=== PATIENT | female | born 1970 | race Caucasian/White ===

== ENCOUNTER → 2018-07-29 14:43 | Outpatient (CLI) | payer OTHER, MEDICAID, SELFPAY ==
--- NOTE | 2018-07-29 | DI.RAD.S_ITS ---
PROCEDURE: XR HIP W PEL IF DONE LT 2V INDICATIONS: LEFT HIP CHRONIC PAIN, LOW BACK TECHNIQUE: 2 views of the hip were acquired. COMPARISON: None. FINDINGS: Bones: No fractures or dislocations. No suspicious bony lesions. The visualized pelvic ring appears intact. No hip joint space narrowing. Soft tissues: No suspicious soft tissue calcifications or masses. IMPRESSION: Negative left hip. If the patient's pain or other symptoms persist, consider further evaluation with MRI Dictated by: Robi Ellington M.D. on 07/29/2018 at 16:40 Approved by: Robi Ellington M.D. on 07/29/2018 at 16:41
--- NOTE | 2018-07-29 | DI.RAD.S_ITS ---
PROCEDURE: XR LUMBAR SPINE 2-3V INDICATIONS: LEFT HIP CHRONIC PAIN, LOW BACK TECHNIQUE: 3 views of the lumbar spine were acquired. COMPARISON: None. FINDINGS: Bones: Trace retrolisthesis of L3 on L4. Diffuse facet arthropathy. Endplate sclerosis and spurring. Moderate narrowing of the L5-S1 disc space. Evocurvature centered at L3. Soft tissues: Overlying bowel gas pattern is normal. No suspicious soft tissue calcifications. IMPRESSION: Moderate L5-S1 disc degeneration. Diffuse facet arthropathy. Trace retrolisthesis of L3 on L4. Levocurvature Dictated by: Robi Ellington M.D. on 07/29/2018 at 16:41 Approved by: Robi Ellington M.D. on 07/29/2018 at 16:42
== END ==
PROVIDERS: Visit Provider Nurse Practitioner Family
DX: M25.552 Pain in left hip (principal); M54.5 Low back pain; M51.37 Other intervertebral disc degeneration, lumbosacral region; M47.816 Spondylosis without myelopathy or radiculopathy, lumbar region; G89.29 Other chronic pain
CPT/HCPCS: 72100; 73502

== ENCOUNTER → 2018-10-21 07:48 | Outpatient (CLI) | payer OTHER, MEDICAID, SELFPAY ==
--- NOTE | 2018-10-21 | DI.US.S_ITS ---
PROCEDURE: US PERIPH VENOUS LOW EXTREM LT INDICATIONS: LEFT LEG PAIN TECHNIQUE: Real-time imaging, as well as color and pulse Doppler interrogation, were performed of the lower extremity deep veins from the inguinal ligament to the popliteal fossa. COMPARISON: None. FINDINGS: The common femoral, femoral and popliteal veins are normally compressible, and free of intraluminal thrombus. Color and pulse Doppler demonstrate normal phasic intraluminal flow. There is normal augmentation response to distal compression maneuver. IMPRESSION: No deep venous thrombosis identified within the left lower extremity. Dictated by: Christopher Mccoy [facility] Interpreted: Cheko Dominique MD on 10/21/2018 at 9:58 Approved by: Cheko Dominique M.D. on 10/21/2018 at 11:11
== END ==
PROVIDERS: Family Provider Nurse Practitioner Family; PCP Nurse Practitioner Family; Visit Provider Nurse Practitioner Family
DX: M79.605 Pain in left leg (principal)
CPT/HCPCS: 93971

== ENCOUNTER → 2018-11-10 16:11 | Outpatient (CLI) | payer OTHER, MEDICAID, SELFPAY ==
--- NOTE | 2018-11-10 | DI.MG.S_ITS ---
BILATERAL DIGITAL SCREENING MAMMOGRAM 3D/2D WITH CAD: 11/10/2018 CLINICAL: Routine screening. Comparison is made to exams dated: 04/04/2015 mammogram, 11/10/2016 mammogram, and 04/03/2014 mammogram - [facility]. The tissue of both breasts is heterogeneously dense. This may lower the sensitivity of mammography. Current study was also evaluated with a Computer Aided Detection (CAD) system. No significant masses, calcifications, or other findings are seen in either breast. There has been no significant interval change. IMPRESSION: NEGATIVE There is no mammographic evidence of malignancy. A 1 year screening mammogram is recommended. This exam was interpreted at Station ID: [id number]. NOTE: For mammograms, a report in lay terms will be sent to the patient. Approximately 15% of breast malignancies will not be visualized mammographically. In the management of a palpable breast mass, a negative mammogram must not discourage biopsy of a clinically suspicious lesion. Electronically Signed By: Dianne robin/emily:11/10/2018 17:07:10 letter sent: Normal Exam ACR BI-RADS Category 1: Negative 3341F
== END ==
PROVIDERS: Visit Provider Nurse Practitioner Family
DX: Z12.31 Encounter for screening mammogram for malignant neoplasm of breast (principal)
CPT/HCPCS: 77063; 77067

== ENCOUNTER 2021-02-16 11:37 | Emergency (ER) | payer OTHER, MEDICAID, SELFPAY ==
[2021-02-16 11:51] VITALS: BP 118/72; PULSE 71; RESP 18; TEMP 36.8; O2SAT 97; BMI 23.3
--- NOTE | 2021-02-16 12:19 | PC.NURSE ---
Pt states that a few days after returning from [place] she developed a pressure in between her eyes, hot flashes, and an increase in her anxiety.
[2021-02-16 12:34] LABS: Alanine Aminotransferase 25 IU/L (<35); Albumin 4.4 g/dL (3.5-5.0); Albumin Globulin Ratio 1.6 (1.0-2.8); Alkaline Phosphatase 54 U/L (38-126); Aspartate Aminotransferase 27 IU/L (14-36); BUN Creatinine Ratio 14.1 (6-22); Bilirubin Total 0.3 mg/dL (0.2-1.3); Blood Urea Nitrogen 9 mg/dL (7-17); Calcium 9.4 mg/dL (8.4-10.2); Carbon Dioxide 26 mmol/L (22-32); Chloride 107 mmol/L (98-107); Estimated Glomerular Filt Rate > 60.0 mL/min (>60); Globulin 2.8 g/dL (1.7-4.1); Glucose 107 mg/dL (70-100); HEMOLYSIS < 15 (0-50); Potassium 3.9 mmol/L (3.4-5.1); Sodium 140 mmol/L (137-145); Total Protein 7.2 g/dL (6.3-8.2)
[2021-02-16 12:39] LABS: Add Manual Diff / Slide Review NO; Basophils Absolute Auto 0 /uL (0-100); Basophils Percent Auto 0.5 % (0-2); Eosinophils Absolute Auto 200 /uL (0-450); Eosinophils Percent Auto 3.3 % (2-4); Hematocrit 40.6 % (36-46); Hemoglobin 13.7 g/dL (12.0-16.0); Lymphocytes Absolute Auto 1300 /uL (1100-4500); Lymphocytes Percent Auto 21.5 % (25-40); Mean Corpuscular HGB Conc 33.8 % (30-36); Mean Corpuscular Hemoglobin 31.2 PG (26-34); Mean Corpuscular Volume 92.1 fL (80-100); Monocytes Absolute Auto 400 /uL (0-900); Monocytes Percent Auto 6.3 % (3-14); Neutrophils Absolute Auto 4300 /uL (1500-7000); Neutrophils Percent Auto 68.4 % (50-75); Platelet Count 223 X10^3/uL (150-400); Red Cell Distribution Width 13.4 % (11.6-14.8); White Blood Cell Count 6.3 X10^3/uL (4.5-11.0)
[2021-02-16 12:46] LABS: COVID19 -Nasal RAPID Negative (Negative)
--- NOTE | 2021-02-16 12:57 | ED.HA ---
HPI - Headache General Chief Complaint: Headache Stated Complaint: HEADACHE/SHAKES Time Seen by Provider: 02/16/21 12:45 Mode of arrival: Ambulatory Limitations: no limitations History of Present Illness HPI Narrative: Patient is a 42-year-old female history of anxiety presenting today with headache ongoing for 1 week. She states that she typically does not get headaches at all she has had 1 migraine in her entire life. She traveled to [facility] a couple weeks ago she has had pain since then. She also is getting more and more anxious about the pain. She has a prescription for Xanax which she takes for anxiety. She started having severe anxiety attacks where she feels like her right arm is weak and travels up and gives her chest pain and palpitations. She has to lay down in a quiet room and take Xanax which does help. Pain in her head is right between her eyes. She denies any other facial pressure or congestion. She has not had any fever. She denies any shortness of breath no cough. She denies any neck pain seems to be moving her neck easily while talking. She has not had any rashes. Related Data Allergies Allergy/AdvReac Type Severity Reaction Status Date / Time bupropion [From Wellbutrin] Allergy Intermediate Hives Verified 02/16/21 11:51 Review of Systems Review of Systems Narrative: GENERAL: Denies chills, fatigue, malaise, fever, sweats, travel HEENT: Denies sinus pain, ear pain, sore throat, difficulty swallowing, neck pain RESPIRATORY: Denies dyspnea, cough, wheezing, hemoptysis, sputum. CARDIOVASCULAR: Denies chest pain, palpitations, orthopnea, edema GASTROINTESTINAL: Denies nausea, vomiting, abdominal pain, diarrhea, constipation, melena. : Denies dysuria, frequency, incontinence, hematuria, urinary retention, flank pain. MUSCULOSKELETAL: Denies weakness, joint pain, or bony pain SKIN: No rash, no erythema, no pruritus NEUROLOGIC: See HPI PSYCHIATRIC: Anxiety 12 point review of systems is negative except for those stated above and HPI Patient History Social History Smoking Status: Never smoker Smoking Status: Never smoker alcohol intake frequency: a few times a week Substance Use Type: does not use Exam Initial Vital Signs Initial Vital Signs: Vital Signs Temperature 98.3 F 02/16/21 11:51 Pulse Rate 71 02/16/21 11:51 Respiratory Rate 18 02/16/21 11:51 Blood Pressure 118/72 02/16/21 11:51 Pulse Oximetry 97 02/16/21 11:51 GENERAL: Well-appearing, well-nourished and in no acute distress. HEENT: Head atraumatic,EOMI, pupils reactive, face symmetric, moist mucous membranes NECK: Supple no meningeal signs CARDIOVASCULAR: Regular rate and rhythm without murmurs, rubs or gallops. RESPIRATORY: Breath sounds equal bilaterally, no wheezes rales or rhonchi. EXTREMITIES: Normal range of motion, no clubbing or edema. Neurovascularly intact NEUROLOGICAL: Alert and oriented x4.Normal gait and speech. Cranial nerves II through XII grossly intact. Good nxjthl-rx-fvrd, good xmwz-je-zmgt, strength equal bilaterally, no dysarthria or aphasia, sensation in tact to soft touch bilaterally, no visual changes, no facial droop SKIN: Warm, dry, no laceration, no petechiae, no rashes or lesions. Scores NIH Stroke Scale Level of Conciousness: Alert, keenly responsive Ask month/age: Answers both questions correctly. Open/close eyes, close hand: Performs both tasks correctly Best gaze horizontal: Normal Visual goel: No visual loss Facial palsy: Normal symetrical movement Left arm drift: No drift for full 10 sec Right arm drift: No drift for full 10 sec Left leg drift: No drift for full 5 sec Right leg drift: No drift for full 5 sec Limb ataxia: Absent Sensory on face/arms/legs: Normal, no sensory loss Best language: No aphasia, normal Dysarthria: Normal Extinction or inattention: No abnormality Total NIH Stroke scale score: 0 Course Orders Ordered: ED Orders 02/16/21 12:07 CMP [Comprehensive Metabolic Panel] Stat COVID19 -Nasal swab/Pre-Proc Stat Complete Blood Count AUTO DIFF Stat 02/16/21 12:57 CT head/brain wo con Stat Discontinued Medications Ketorolac Tromethamine (Ketorolac 30 Mg/Ml Vial) 15 mg IV NOW ONE Stop: 02/16/21 12:58 Last Admin: 02/16/21 13:06 Dose: 15 mg Documented by: BALTA Vital Signs Vital signs: Vital Signs - 8 hr 02/16/21 11:51 02/16/21 15:11 Temperature 98.3 F Pulse Rate 71 64 Respiratory Rate 18 18 Blood Pressure 118/72 116/69 Pulse Oximetry 97 98 MDM - Headache Lab Data Result diagrams: 02/16/21 12:07 02/16/21 12:07 Labs: Lab Results 02/16/21 02/16/21 02/16/21 Range/Units 12:07 12:07 12:07 WBC 6.3 (4.5-11.0) X10^3/uL RBC 4.40 (4.0-5.2) X10^6/uL Hgb 13.7 (12.0-16.0) g/dL Hct 40.6 (36-46) % MCV 92.1 (80-100) fL MCH 31.2 (26-34) PG MCHC 33.8 (30-36) % RDW 13.4 (11.6-14.8) % Plt Count 223 (150-400) X10^3/uL Neut % (Auto) 68.4 (50-75) % Lymph % (Auto) 21.5 L (25-40) % Wood % (Auto) 6.3 (3-14) % Eos % (Auto) 3.3 (2-4) % Baso % (Auto) 0.5 (0-2) % Neut # (Auto) 4300 (4386-7925) /uL Lymph # (Auto) 1300 (0676-4511) /uL Wood # (Auto) 400 (0-900) /uL Eos # (Auto) 200 (0-450) /uL Baso # (Auto) 0 (0-100) /uL Sodium 140 (137-145) mmol/L Potassium 3.9 (3.4-5.1) mmol/L Chloride 107 (98-107) mmol/L Carbon Dioxide 26 (22-32) mmol/L BUN 9 (7-17) mg/dL Creatinine 0.64 (0.52-1.04) mg/dL Estimated GFR > 60.0 (>60) mL/min BUN/Creatinine Ratio 14.1 (6-22) Glucose 107 H (70-100) mg/dL Calcium 9.4 (8.4-10.2) mg/dL Total Bilirubin 0.3 (0.2-1.3) mg/dL AST 27 (14-36) IU/L ALT 25 (<35) IU/L Alkaline Phosphatase 54 (38-126) U/L Total Protein 7.2 (6.3-8.2) g/dL Albumin 4.4 (3.5-5.0) g/dL Globulin 2.8 (1.7-4.1) g/dL Albumin/Globulin Ratio 1.6 (1.0-2.8) SARS-CoV-2 (PCR) Negative (Negative) Point of Care Testing Test Results Negative Urine Dip Bedside Urine Glucose Negative Bedside Urine Bilirubin - Negative Bedside Urine Ketone - Negative Urine Specific [place] 1.010 Bedside Urine Occult Blood - Negative Bedside Urine pH 7.0 Bedside Urine Protein - Negative Bedside Urine Urobilinogen - Negative Bedside Urine Nitrite - Negative Bedside Urine Leukocytes - Negative Esterase Imaging Data CT scan - head: Radiologist's Impression: PROCEDURE: CT HEAD/BRAIN WO CON INDICATIONS: abnormal headache for 1 week TECHNIQUE: Noncontrast 4.5 mm thick angled axial sections acquired from the foramen magnum to the vertex, with coronal and sagittal reformats. For radiation dose reduction, the following was used: automated exposure control, adjustment of mA and/or kV according to patient size. COMPARISON: None. FINDINGS: Image quality: Excellent. CSF spaces: Basal cisterns are patent. No extra-axial fluid collections. Ventricles are normal in size and shape. Brain: No midline shift. No intracranial masses or hemorrhage. Rock-white matter interface is normal. Skull and face: Calvarium and visualized facial bones are intact, without suspicious lesions. Sinuses: Visualized sinuses and mastoids are clear. IMPRESSION: Unremarkable intracranial study, without an imaging explanation found for the patient's presenting history of headache. Dictated by: Abner Ortega M.D. on 02/16/2021 at 12:52 Approved by: Abner Ortega M.D. on 02/16/2021 at 12:53 [facility] Narrative Medical decision making narrative: The patient is complaining of headache right between her eyes. She has no other facial congestion or facial pressure to suggest a sinusitis. Physical focal deficits. Other symptoms of arm is pain and weakness suggest anxiety. She does have a history of significant anxiety. Discharge Plan Departure Patient Disposition: Home Clinical Impression: Headache Instructions: DI for Headache Activity Restrictions/Additional Instructions: *You have been diagnosed with headache *What to do: At this time blood work and CT scan are overall reassuring. *Continue to take medications as directed Tylenol 1000 mg every 6 hours if needed for kaxt-gj-vqbmllqw pain Motrin 800 mg every 8 hours if needed for ctyt-li-jdxkyiaa pain *Follow up with your primary care provider in 2-3 days *Return to ER if you should have increasing pain, persistent vomiting, weakness numbness or tingling or any new, worsening or concerning symptoms Referrals: Miscellaneous,Doctor, [Primary Care Provider] -
[2021-02-16] MEDS: KETOROLAC 30 MG/ML VIAL 15 MG IV (13:06)
[2021-02-16 15:11] VITALS: BP 116/69; PULSE 64; RESP 18; O2SAT 98
== END 2021-02-16 15:12 | disposition home or self-care (01) ==
PROVIDERS: Emergency Provider Emergency Medicine
DX: R51.9 Headache, unspecified (principal); Z20.822 Contact with and (suspected) exposure to COVID-19
CPT/HCPCS: 36415; 70450; 80053; 81003; 81025; 85025; 87635; 96374; 99284; C9803; J1885

== ENCOUNTER 2025-06-21 13:45 | Outpatient (RCR) | payer OTHER, MEDICAID, SELFPAY ==
--- NOTE | 2025-01-11 15:53 | PT-OP ANOTE ---
Doctor's office called for clarification on protocol and office states that doctor follows any standard rotator cuff protocol. He does not have one of his own and is okay with PT getting a different protocol offline to follow.
--- NOTE | 2025-01-11 16:09 | PT.OIE ---
Addendum entered and electronically signed by Chikis Vu, PT 01/11/25 16:15: PT direct supervision and direction to student PT Lois Melo Original Note: Current Diagnoses Complete rotator cuff tear or rupture of right shoulder, not specified as traumatic (01/11/25) Visit Care Team Role Provider Type Doctor MD Tori Primary Care Provider Non-Staff Specialty: Medical Address: Phone: Fax: Email: Taurus Muir DO Attending Provider Non-Staff Family Provider Referring Provider Specialty: Orthopedics Address: [address] [place] [address] [address], [place], [address] opt2 Email: Physical Therapy Initial Evaluation PT-OP-A Visit Information Start: 01/09/25 13:27 Freq: Status: Active Protocol: Document 01/11/25 11:32 GG (Rec: 01/11/25 12:34 GG [id number]) Out-Patient Physical Therapy Visit Information Visit Information Visit Type Initial Evaluation Visit Start Time 11:34 Visit Stop Time 12:22 Visit Number 1 Number of CABLE SUPERVISOR Visits 0 Precautions Precautions 2 weeks s/p RC repair: PROM in all directions to tolerance (per protocol) PT-OP-B Current Condition Start: 01/09/25 13:27 Freq: Status: Active Protocol: Document 01/11/25 11:32 GG (Rec: 01/11/25 12:34 GG [id number]) Current Condition History of Current Condition Onset Date 12/28/24 Current Complaints 2 weeks s/p R supraspinatus repair History of Current Pt presents in simple sling on R arm. RC repair Condition following full supraspinatus tear on R shoulder. R hand -dominant. 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 Was initially told it was biceps tendinitis and was given some exercises to try, after no change she went back in and they found tear. No issues during surgery, and has weaned off opiate medications and only taking OTC NSAIDS. Notes more difficulty w/ sleeping d/t pain. Sleeps in recliner. Has a good support system to bring her to/from appts. 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 Likes drawing. Can currently do light vacuuming and can walk small dog w/ her L hand. Has been moving around her wrist and squeezing a ball. Had to stop doing yoga since injury. Notes some R neck stiffness since surgery, which she thinks is due sleeping in recliner. Going to [facility] 01/21 to stay w/ a friend and is scheduled to go to PT over there as well. Had surgery f/u yesterday and got stitches removed. Treatment Goals Patient/Caregiver driving, drawing, cleaning, yoga, strengthening, Goals showering/putting hair up and other self-hygiene, donning/doffing bra PT-OP-C Subjective Start: 01/09/25 13:27 Freq: Status: Active Protocol: Document 01/11/25 11:32 GG (Rec: 01/11/25 13:17 GG [id number]) Patient Questionnaires Quick Dash- Upper Extremity Quick Dash UE Score 70% Quick Dash UE 60 to 79% Impaired (Score 60-79) Impairment PT-OP-J Posture/Palpation/Skin Start: 01/09/25 13:27 Freq: Status: Active Protocol: Document 01/11/25 11:32 GG (Rec: 01/11/25 13:40 GG [id number]) Skin Assessment Incisional Assessment Incision Appearance/ four small incision about 1-2cm in length from Comments laparoscope around R shoulder; sutures removed, but still has mechanical closure. no excessive inflammation or swelling present. PT-OP-K Range of Motion Start: 01/09/25 13:27 Freq: Status: Active Protocol: Document 01/11/25 11:32 GG (Rec: 01/11/25 12:34 GG [id number]) Shoulder Goniometric Range of Motion Shoulder Right Passive Testing Position Supine Flexion 41 Abduction 50 External Rotation at 30 45 degrees Abduction Comments ER and ABD done in scaption PT-OP-Q Treatments Start: 01/09/25 13:27 Freq: Status: Active Protocol: Document 01/11/25 11:32 GG (Rec: 01/11/25 12:34 GG [id number]) Therapeutic Exercises Sitting Exercises stretches Sitting Exercise UT and LS Name Side bilateral Reps/Minutes 30s ea wrist Sitting Exercise AROM flex/ext Name Reps/Minutes 10x elbow flexion Sitting Exercise AROM flex/ext Name Reps/Minutes 10x Comments ed to stay in pain-free range; support elbow w/ L hand Other Exercises fwd lean Other Exercise Name let arm hang Reps/Minutes 30 s Therapeutic Activity Therapeutic Activity shoulder positioning Comments using fwd lean to wash armpits and shave, don/doff shirts and bras, sling repositioning for better alignment, propping shoulder while in recliner or laying down with pillows PT-OP-T Assessment and Plan Start: 01/09/25 13:27 Freq: Status: Active Protocol: Document 01/11/25 11:32 GG (Rec: 01/11/25 12:34 GG [id number]) Physical Therapy Assessment Rehab Potential Rehabilitation Good Potential Evaluation Complexity Number of Personal 3 or More Factors/ Comorbidities Number of Body 1-2 Systems Impaired Clinical Evolving Presentation at Evaluation Impairments Impairments Activity Tolerance,Functional Activities,Functional Mobility,Pain,Posture,ROM,Soft Tissue Mobility,Strength Goals ROM Short Term Goal (STG Pt will be able get at least 120 deg active shoulder ) flexion and 60 deg active ER of the R shoulder for better ability to complete self-hygiene. STG Duration 02/24/25 Fdc Goal (LTG) Pt will have shoulder ROM equal to or greater than L shoulder for better function during work and yoga. LTG Duration 04/05/25 work Business Services Coordinator Goal (LTG) Pt will be able to resume light work activities w/o pain exceeding 3/10 to show improved function and ability to meet job requirements. LTG Duration 04/05/25 quickDASH Impairment 70% Short Term Goal (STG Pt will score at least a 40% on quickDASH to show ) improving functional ability w/o being limited by pain. STG Duration 02/24/25 Business Services Coordinator Goal (LTG) Pt will score at least a 10% or less on quickDASH to show improved functional ability w/o being limited by pain. LTG Duration 04/05/25 Assessment Summary Assessment Adela presents to PT 2 weeks s/p R supraspinatus repair w / reduced ROM and pain associated w/ surgery. Pt will cont to benefit from skilled PT to regain ROM, build strength, and reduce pain for better ability to work and participate in hobbies and other activities. Physical Therapy Plan Frequency and Duration Frequency of 2x/Week Treatment Duration of 12 treatment (weeks) Plan of Care Start 01/11/25 Date Plan of Care End 04/05/25 Date Therapeutic Interventions Therapeutic Home Exercise Program,Joint Mobilizations,Manual Interventions Therapy,Neuromuscular Re-education,Patient/Caregiver Education,Self-Care/Home Management,Soft Tissue Mobilization,Taping,Therapeutic Activities,Therapeutic Exercises Modalities Cold Pack/Ice Massage,Electric Stimulation,Hot Packs, Infrared Therapy,Ultrasound Next Visit Focus/Plan Next Note Type Treatment Note Next Visit Plan check in how self-hygiene and sleep is going TE: cont w/ elbow and wrist exercises (AROM), putty/ line assembler strength, gentle pendulums MT: gentle PROM for shoulder flexion, PROM abduction/IR /ER (all in scap plane), AP mobs at , soft tissue work
--- NOTE | 2025-01-11 16:09 | PT.OPPOC ---
Addendum entered and electronically signed by Chikis Vu, PT 03/02/25 10:32: POC zeke Original Note: Physical, Occupational & Speech Therapy At [facility] Current Diagnoses Complete rotator cuff tear or rupture of right shoulder, not specified as traumatic (01/11/25) Visit Care Team Role Provider Type Doctor Tori, Primary Care Provider Non-Staff Specialty: Medical Address: Phone: Fax: Email: Taurus Muir DO Attending Provider Non-Staff Family Provider Referring Provider Specialty: Orthopedics Address: [address] [place] [address] [address], [place], [address] opt2 Email: Plan Of Care PT-OP-B Current Condition Start: 01/09/25 13:27 Freq: Status: Active Protocol: Document 01/11/25 11:32 GG (Rec: 01/11/25 12:34 GG [id number]) Current Condition History of Current Condition Onset Date 12/28/24 Current Complaints 2 weeks s/p R supraspinatus repair History of Current Pt presents in simple sling on R arm. RC repair Condition following full supraspinatus tear on R shoulder. R hand -dominant. 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 Was initially told it was biceps tendinitis and was given some exercises to try, after no change she went back in and they found tear. No issues during surgery, and has weaned off opiate medications and only taking OTC NSAIDS. Notes more difficulty w/ sleeping d/t pain. Sleeps in recliner. Has a good support system to bring her to/from appts. 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 Likes drawing. Can currently do light vacuuming and can walk small dog w/ her L hand. Has been moving around her wrist and squeezing a ball. Had to stop doing yoga since injury. Notes some R neck stiffness since surgery, which she thinks is due sleeping in recliner. Going [facility] 01/21 to stay w/ a friend and is scheduled to go to PT over there as well. Had surgery f/u yesterday and got stitches removed. Treatment Goals Patient/Caregiver driving, drawing, cleaning, yoga, strengthening, Goals showering/putting hair up and other self-hygiene, donning/doffing bra PT-OP-T Assessment and Plan Start: 01/09/25 13:27 Freq: Status: Active Protocol: Document 01/11/25 11:32 GG (Rec: 01/11/25 12:34 GG [id number]) Physical Therapy Assessment Rehab Potential Rehabilitation Good Potential Evaluation Complexity Number of Personal 3 or More Factors/ Comorbidities Number of Body 1-2 Systems Impaired Clinical Evolving Presentation at Evaluation Impairments Impairments Activity Tolerance,Functional Activities,Functional Mobility,Pain,Posture,ROM,Soft Tissue Mobility,Strength Goals ROM Short Term Goal (STG Pt will be able get at least 120 deg active shoulder ) flexion and 60 deg active ER of the R shoulder for better ability to complete self-hygiene. STG Duration 02/24/25 Retirement Goal (LTG) Pt will have shoulder ROM equal to or greater than L shoulder for better function during work and yoga. LTG Duration 04/05/25 work Retirement Goal (LTG) Pt will be able to resume light work activities w/o pain exceeding 3/10 to show improved function and ability to meet job requirements. LTG Duration 04/05/25 quickDASH Impairment 70% Short Term Goal (STG Pt will score at least a 40% on quickDASH to show ) improving functional ability w/o being limited by pain. STG Duration 02/24/25 Invasive Cardiovascular Technologist Goal (LTG) Pt will score at least a 10% or less on quickDASH to show improved functional ability w/o being limited by pain. LTG Duration 04/05/25 Assessment Summary Assessment Adela presents to PT 2 weeks s/p R supraspinatus repair w / reduced ROM and pain associated w/ surgery. Pt will cont to benefit from skilled PT to regain ROM, build strength, and reduce pain for better ability to work and participate in hobbies and other activities. Physical Therapy Plan Frequency and Duration Frequency of 2x/Week Treatment Duration of 12 treatment (weeks) Plan of Care Start 01/11/25 Plan of Care End 04/05/25 Date Therapeutic Interventions Therapeutic Home Exercise Program,Joint Mobilizations,Manual Interventions Therapy,Neuromuscular Re-education,Patient/Caregiver Education,Self-Care/Home Management,Soft Tissue Mobilization,Taping,Therapeutic Activities,Therapeutic Exercises Modalities Cold Pack/Ice Massage,Electric Stimulation,Hot Packs, Infrared Therapy,Ultrasound Next Visit Focus/Plan Next Note Type Treatment Note Next Visit Plan check in how self-hygiene and sleep is going TE: cont w/ elbow and wrist exercises (AROM), putty/ rug setter velvet strength, gentle pendulums MT: gentle PROM for shoulder flexion, PROM abduction/IR /ER (all in scap plane), AP mobs at , soft tissue work Plan of Care Dates Plan of Care Start Date 01/11/25 Plan of Care End Date 04/05/25 Electronically Signed by: Lois Melo 01/11/25 1532 If you are in agreement with this Plan of Care, please return a signed and dated copy. I have reviewed this Plan of Care and certify that the skilled therapy services above are required to meet the patient?s needs. Physician Signature Date Printed Name and Credentials Clinical Instructor Signature Printed Name and Credentials
--- NOTE | 2025-01-13 12:26 | PT.OTN ---
Current Diagnoses Complete rotator cuff tear or rupture of right shoulder, not specified as traumatic (01/13/25) Physical Therapy Treatment Note PT-OP-A Visit Information Start: 01/09/25 13:27 Freq: Status: Active Protocol: Document 01/13/25 11:31 AB (Rec: 01/13/25 12:26 AB Laptop) Out-Patient Physical Therapy Visit Information Visit Information Visit Start Time 11:37 Visit Stop Time 12:20 Visit Number 2 Number of REAL ESTATE PROFESSIONAL Visits 1 PT-OP-B Current Condition Start: 01/09/25 13:27 Freq: Status: Active Protocol: Document 01/11/25 11:32 GG (Rec: 01/11/25 12:34 GG [id number]) Current Condition History of Current Condition Onset Date 12/28/24 Current Complaints 2 weeks s/p R supraspinatus repair History of Current Pt presents in simple sling on R arm. RC repair Condition following full supraspinatus tear on R shoulder. R hand -dominant. 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 Was initially told it was biceps tendinitis and was given some exercises to try, after no change she went back in and they found tear. No issues during surgery, and has weaned off opiate medications and only taking OTC NSAIDS. Notes more difficulty w/ sleeping d/t pain. Sleeps in recliner. Has a good support system to bring her to/from appts. 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 Likes drawing. Can currently do light vacuuming and can walk small dog w/ her L hand. Has been moving around her wrist and squeezing a ball. Had to stop doing yoga since injury. Notes some R neck stiffness since surgery, which she thinks is due sleeping in recliner. Going to [facility] 01/21 to stay w/ a friend and is scheduled to go to PT over there as well. Had surgery f/u yesterday and got stitches removed. Treatment Goals Patient/Caregiver driving, drawing, cleaning, yoga, strengthening, Goals showering/putting hair up and other self-hygiene, donning/doffing bra PT-OP-C Subjective Start: 01/09/25 13:27 Freq: Status: Active Protocol: Document 01/13/25 11:31 AB (Rec: 01/13/25 12:26 AB Laptop) OP-PT Subjective Patient Comments Patient Comments Patient reports continued pain ant sub deltoid and post GH, comments it wakes her up. Patient reports using ice, Advil and Tylenol. Patient reports she is sleeping in a recliner until the . PT-OP-J Posture/Palpation/Skin Start: 01/09/25 13:27 Freq: Status: Active Protocol: Document 01/11/25 11:32 GG (Rec: 01/11/25 13:40 GG [id number]) Skin Assessment Incisional Assessment Incision Appearance/ four small incision about 1-2cm in length from Comments laparoscope around R shoulder; sutures removed, but still has mechanical closure. no excessive inflammation or swelling present. PT-OP-K Range of Motion Start: 01/09/25 13:27 Freq: Status: Active Protocol: Document 01/11/25 11:32 GG (Rec: 01/11/25 12:34 GG [id number]) Shoulder Goniometric Range of Motion Shoulder Right Passive Testing Position Supine Flexion 41 Abduction 50 External Rotation at 30 45 degrees Abduction Comments ER and ABD done in scaption PT-OP-Q Treatments Start: 01/09/25 13:27 Freq: Status: Active Protocol: Document 01/13/25 11:31 AB (Rec: 01/13/25 12:26 AB Laptop) Therapeutic Exercises Supine Exercises elbow flexion Supine Exercise Name UE supported on pillow Reps/Minutes X 10 Comments verbal cues Sitting Exercises wrist Sitting Exercise gripping blue foam Name Reps/Minutes X 10 elbow flexion Sitting Exercise AROM flex/ext Name Reps/Minutes 10x Comments ed to stay in pain-free range; support elbow w/ L hand Other Exercises fwd lean Other Exercise Name let arm hang HEP arm hang only, pendulum not to HEP Reps/Minutes 30 s also trial of pend fwd and side side, no to very minimal mvt, Manual Therapy Treatment Consent Patient gave verbal Yes consent for manual treatment Joint Mobilizations R shoulder Direction AP inf Grade II Body Position Hooklying Reps/Duration X 10 X 2 each Manual Techniques scapular isometrics Type into dep and add manual resistance Body Location right shoulder Reps/Duration X 10 each PROM Type R shoulder scap plane Comments ER lacking 9 from 0 deg start to 10 deg Ir 30 deg flexion 46 deg to 52 deg Self-Care/Home Management Treatment Education Other Education Patient ed, review no weight bearing, importance of no active movement, donning/doffing sling and during Arm hang PT-OP-T Assessment and Plan Start: 01/09/25 13:27 Freq: Status: Active Protocol: Document 01/13/25 11:31 AB (Rec: 01/13/25 12:26 AB Laptop) Physical Therapy Assessment Goals ROM Short Term Goal (STG Pt will be able get at least 120 deg active shoulder ) flexion and 60 deg active ER of the R shoulder for better ability to complete self-hygiene. STG Duration 02/24/25 Car Body Designer Goal (LTG) Pt will have shoulder ROM equal to or greater than L shoulder for better function during work and yoga. LTG Duration 04/05/25 work Car Body Designer Goal (LTG) Pt will be able to resume light work activities w/o pain exceeding 3/10 to show improved function and ability to meet job requirements. LTG Duration 04/05/25 quickDASH Impairment 70% Short Term Goal (STG Pt will score at least a 40% on quickDASH to show ) improving functional ability w/o being limited by pain. STG Duration 02/24/25 Car Body Designer Goal (LTG) Pt will score at least a 10% or less on quickDASH to show improved functional ability w/o being limited by pain. LTG Duration 04/05/25 Assessment Summary Assessment Increased PROM R shoulder ER and flexion, IR at 30 deg in scap plane on first measurement. Adela rates pain 0/10 end of session. Patient reports only doing arm hang during hygiene, patient ed to perform 3 X a day. Physical Therapy Plan Frequency and Duration Frequency of 2x/Week Treatment Duration of 12 treatment (weeks) Plan of Care Start 01/11/25 Date Plan of Care End 04/05/25 Date Next Visit Focus/Plan Next Note Type Treatment Note Next Visit Plan check in how self-hygiene and sleep is going TE: cont w/ elbow and wrist exercises (AROM), putty/ energy efficient site manager strength, gentle pendulums MT: gentle PROM for shoulder flexion, PROM abduction/IR /ER (all in scap plane), AP mobs at , soft tissue work
--- NOTE | 2025-01-17 15:51 | PT.OTN ---
Addendum entered and electronically signed by Chikis Vu, PT 01/17/25 16:33: PT direct supervision and direction to student PT Lois Melo throughout session Original Note: Current Diagnoses Complete rotator cuff tear or rupture of right shoulder, not specified as traumatic (01/17/25) Physical Therapy Treatment Note PT-OP-A Visit Information Start: 01/09/25 13:27 Freq: Status: Active Protocol: Document 01/17/25 11:32 GG (Rec: 01/17/25 12:24 GG [id number]) Out-Patient Physical Therapy Visit Information Visit Information Visit Type Treatment Note Visit Start Time 11:32 Visit Stop Time 12:15 Visit Number 3 Number of SPRING ASSEMBLER Visits 0 Precautions Precautions RC repair on 12/28/24 follow protocol PT-OP-B Current Condition Start: 01/09/25 13:27 Freq: Status: Active Protocol: Document 01/11/25 11:32 GG (Rec: 01/11/25 12:34 GG [id number]) Current Condition History of Current Condition Onset Date 12/28/24 Current Complaints 2 weeks s/p R supraspinatus repair History of Current Pt presents in simple sling on R arm. RC repair Condition following full supraspinatus tear on R shoulder. R hand -dominant. 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 Was initially told it was biceps tendinitis and was given some exercises to try, after no change she went back in and they found tear. No issues during surgery, and has weaned off opiate medications and only taking OTC NSAIDS. Notes more difficulty w/ sleeping d/t pain. Sleeps in recliner. Has a good support system to bring her to/from appts. 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 Likes drawing. Can currently do light vacuuming and can walk small dog w/ her L hand. Has been moving around her wrist and squeezing a ball. Had to stop doing yoga since injury. Notes some R neck stiffness since surgery, which she thinks is due sleeping in recliner. Going to [facility] 01/21 to stay w/ a friend and is scheduled to go to PT over there as well. Had surgery f/u yesterday and got stitches removed. Treatment Goals Patient/Caregiver driving, drawing, cleaning, yoga, strengthening, Goals showering/putting hair up and other self-hygiene, donning/doffing bra PT-OP-C Subjective Start: 01/09/25 13:27 Freq: Status: Active Protocol: Document 01/17/25 11:32 GG (Rec: 01/17/25 12:24 GG [id number]) OP-PT Subjective Patient Comments Patient Comments Pt reports that she has been doing HEP and all feel good, she is trying to work on extending her elbow too. States exercises feel easy. Going to see cryptozoologist tomorrow and massage therapist later this week. Reports that she is no longer taking any pain meds. PT-OP-J Posture/Palpation/Skin Start: 01/09/25 13:27 Freq: Status: Active Protocol: Document 01/11/25 11:32 GG (Rec: 01/11/25 13:40 GG [id number]) Skin Assessment Incisional Assessment Incision Appearance/ four small incision about 1-2cm in length from Comments laparoscope around R shoulder; sutures removed, but still has mechanical closure. no excessive inflammation or swelling present. PT-OP-K Range of Motion Start: 01/09/25 13:27 Freq: Status: Active Protocol: Document 01/17/25 11:32 GG (Rec: 01/17/25 12:24 GG [id number]) Shoulder Goniometric Range of Motion Shoulder Right Passive Flexion 65 Extension 28 Abduction 52 External Rotation at 30 45 degrees Abduction Internal Rotation 30 Comments ER/IR in scaption PT-OP-Q Treatments Start: 01/09/25 13:27 Freq: Status: Active Protocol: Document 01/17/25 11:32 GG (Rec: 01/17/25 12:24 GG [id number]) Therapeutic Exercises Sitting Exercises scapular Sitting Exercise 1. retraction 2. depression Name Side bilateral Reps/Minutes 10x Standing Exercises pendulum Standing Exercise fwd/bkwd, lat, CW/CWW Name Reps/Minutes 30 sec Manual Therapy Treatment Consent Patient gave verbal Yes consent for manual treatment Soft Tissue Mobilization pec Body Location R Mobilization Type Sustained Pressure Comments w/ passive abduction Joint Mobilizations R shoulder Direction AP, inf Grade II PT-OP-T Assessment and Plan Start: 01/09/25 13:27 Freq: Status: Active Protocol: Document 01/17/25 11:32 GG (Rec: 01/17/25 12:24 GG [id number]) Physical Therapy Assessment Goals ROM Short Term Goal (STG Pt will be able get at least 120 deg active shoulder ) flexion and 60 deg active ER of the R shoulder for better ability to complete self-hygiene. STG Duration 02/24/25 Head Operator Sulfide Goal (LTG) Pt will have shoulder ROM equal to or greater than L shoulder for better function during work and yoga. LTG Duration 04/05/25 work Head Operator Sulfide Goal (LTG) Pt will be able to resume light work activities w/o pain exceeding 3/10 to show improved function and ability to meet job requirements. LTG Duration 04/05/25 quickDASH Impairment 70% Short Term Goal (STG Pt will score at least a 40% on quickDASH to show ) improving functional ability w/o being limited by pain. STG Duration 02/24/25 Senior Care Goal (LTG) Pt will score at least a 10% or less on quickDASH to show improved functional ability w/o being limited by pain. LTG Duration 04/05/25 Assessment Summary Assessment Pt cont tolerate gentle PROM, mobilizations, and HEP. Cont improvements to PROM measurements since . Pt shows good carryover for exercises and precautions. Pt ed regarding sleeping position in bed. Physical Therapy Plan Frequency and Duration Frequency of 2x/Week Treatment Duration of 12 treatment (weeks) Plan of Care Start 01/11/25 Date Plan of Care End 04/05/25 Date Therapeutic Interventions Therapeutic Home Exercise Program,Joint Mobilizations,Manual Interventions Therapy,Neuromuscular Re-education,Patient/Caregiver Education,Self-Care/Home Management,Soft Tissue Mobilization,Taping,Therapeutic Activities,Therapeutic Exercises Modalities Cold Pack/Ice Massage,Electric Stimulation,Hot Packs, Infrared Therapy,Ultrasound Next Visit Focus/Plan Next Note Type Treatment Note Next Visit Plan check in how self-hygiene and sleep is going, HEP TE: cont w/ elbow and wrist exercises (AROM), scap isos MT: gentle PROM for shoulder flexion, PROM abduction/IR /ER (all in scap plane), AP mobs at , soft tissue work
--- NOTE | 2025-01-19 12:28 | PT.OTN ---
Current Diagnoses Complete rotator cuff tear or rupture of right shoulder, not specified as traumatic (01/19/25) Physical Therapy Treatment Note PT-OP-A Visit Information Start: 01/09/25 13:27 Freq: Status: Active Protocol: Document 01/19/25 11:31 AB (Rec: 01/19/25 12:28 AB Laptop) Out-Patient Physical Therapy Visit Information Visit Information Visit Type Treatment Note Visit Start Time 11:36 Visit Stop Time 12:16 Visit Number 4 Number of INDUSTRY CONSULTANT Visits 1 Precautions Precautions RC repair on 12/28/24 follow protocol PT-OP-B Current Condition Start: 01/09/25 13:27 Freq: Status: Active Protocol: Document 01/11/25 11:32 GG (Rec: 01/11/25 12:34 GG [id number]) Current Condition History of Current Condition Onset Date 12/28/24 Current Complaints 2 weeks s/p R supraspinatus repair History of Current Pt presents in simple sling on R arm. RC repair Condition following full supraspinatus tear on R shoulder. R hand -dominant. 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 Was initially told it was biceps tendinitis and was given some exercises to try, after no change she went back in and they found tear. No issues during surgery, and has weaned off opiate medications and only taking OTC NSAIDS. Notes more difficulty w/ sleeping d/t pain. Sleeps in recliner. Has a good support system to bring her to/from appts. 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 Likes drawing. Can currently do light vacuuming and can walk small dog w/ her L hand. Has been moving around her wrist and squeezing a ball. Had to stop doing yoga since injury. Notes some R neck stiffness since surgery, which she thinks is due sleeping in recliner. Going to [facility] 01/21 to stay w/ a friend and is scheduled to go to PT over there as well. Had surgery f/u yesterday and got stitches removed. Treatment Goals Patient/Caregiver driving, drawing, cleaning, yoga, strengthening, Goals showering/putting hair up and other self-hygiene, donning/doffing bra PT-OP-C Subjective Start: 01/09/25 13:27 Freq: Status: Active Protocol: Document 01/19/25 11:31 AB (Rec: 01/19/25 12:28 AB Laptop) OP-PT Subjective Patient Comments Patient Comments Patient reports she has been back to apartment, sleeping with UE flat. Patient reports she has been working on full elbow extension. Patient reports having no pain start of session. Reviewed precaution, no active movement. Patient is 3 weeks one day post op. PT-OP-J Posture/Palpation/Skin Start: 01/09/25 13:27 Freq: Status: Active Protocol: Document 01/11/25 11:32 GG (Rec: 01/11/25 13:40 GG [id number]) Skin Assessment Incisional Assessment Incision Appearance/ four small incision about 1-2cm in length from Comments laparoscope around R shoulder; sutures removed, but still has mechanical closure. no excessive inflammation or swelling present. PT-OP-K Range of Motion Start: 01/09/25 13:27 Freq: Status: Active Protocol: Document 01/17/25 11:32 GG (Rec: 01/17/25 12:24 GG [id number]) Shoulder Goniometric Range of Motion Shoulder Right Passive Flexion 65 Extension 28 Abduction 52 External Rotation at 30 45 degrees Abduction Internal Rotation 30 Comments ER/IR in scaption PT-OP-Q Treatments Start: 01/09/25 13:27 Freq: Status: Active Protocol: Document 01/19/25 11:31 AB (Rec: 01/19/25 12:28 AB Laptop) Therapeutic Exercises Sitting Exercises wrist Sitting Exercise gripping blue foam Name Reps/Minutes 30 sec elbow flexion Sitting Exercise AROM flex/ext Name Reps/Minutes 10x Comments ed to stay in pain-free range; support elbow w/ L hand Standing Exercises pendulum Standing Exercise fwd/bkwd, lat, CW/CWW Name Reps/Minutes 60 sec Other Exercises fwd lean Other Exercise Name let arm hang HEP arm hang only, Reps/Minutes X 30 sec Manual Therapy Treatment Consent Patient gave verbal Yes consent for manual treatment Soft Tissue Mobilization pec Body Location R Mobilization Type Sustained Pressure Comments w/ passive abduction Joint Mobilizations R shoulder Direction AP, inf Grade II Manual Techniques scapular isometrics Type into dep and add manual resistance Body Location right shoulder Reps/Duration X 10 each PROM Comments ER in scap plane 6 deg to 20 deg flexion 58 deg to 70 deg in scap plane PT-OP-T Assessment and Plan Start: 01/09/25 13:27 Freq: Status: Active Protocol: Document 01/19/25 11:31 AB (Rec: 01/19/25 12:28 AB Laptop) Physical Therapy Assessment Goals ROM Short Term Goal (STG Pt will be able get at least 120 deg active shoulder ) flexion and 60 deg active ER of the R shoulder for better ability to complete self-hygiene. STG Duration 02/24/25 Department Chairperson Goal (LTG) Pt will have shoulder ROM equal to or greater than L shoulder for better function during work and yoga. LTG Duration 04/05/25 work Department Chairperson Goal (LTG) Pt will be able to resume light work activities w/o pain exceeding 3/10 to show improved function and ability to meet job requirements. LTG Duration 04/05/25 quickDASH Impairment 70% Short Term Goal (STG Pt will score at least a 40% on quickDASH to show ) improving functional ability w/o being limited by pain. STG Duration 02/24/25 Department Chairperson Goal (LTG) Pt will score at least a 10% or less on quickDASH to show improved functional ability w/o being limited by pain. LTG Duration 04/05/25 Assessment Summary Assessment PROM R shoulder flex in scap plane to 70 deg. Patient reports feeling better sleeping in bed. Physical Therapy Plan Frequency and Duration Frequency of 2x/Week Treatment Duration of 12 treatment (weeks) Plan of Care Start 01/11/25 Date Plan of Care End 04/05/25 Date Next Visit Focus/Plan Next Visit Plan check in how self-hygiene and sleep is going, HEP TE: cont w/ elbow and wrist exercises (AROM), scap isos MT: gentle PROM for shoulder flexion, PROM abduction/IR /ER (all in scap plane), AP mobs at , soft tissue work
--- NOTE | 2025-02-14 16:33 | PT-OP ANOTE ---
per phone call w/ortho office: nurse said pt cleared for out of sling w/usual activities(eating, brushing teeth, can start AAROM, no lifting elbow above shoulder. Pt was informed by clinic but also called by PT to inform PT talked with clinic. Pt understands allowance.
--- NOTE | 2025-02-14 16:36 | PT.OTN ---
Current Diagnoses Complete rotator cuff tear or rupture of right shoulder, not specified as traumatic (02/14/25) Physical Therapy Treatment Note PT-OP-A Visit Information Start: 01/09/25 13:27 Freq: Status: Active Protocol: Document 02/14/25 15:24 [facility] (Rec: 02/14/25 16:36 [facility] [id number]) Out-Patient Physical Therapy Visit Information Visit Information Visit Type Progress Note Visit Start Time 15:20 Visit Stop Time 16:00 Visit Number 5 Number of LANGUAGE PATHOLOGIST Visits 0 Precautions Precautions per phone call w/office: nurse said pt cleared for out of sling w/usual activities(eating, brushing teeth, can start AAROM, no lifting elbow above shoulder PT-OP-B Current Condition Start: 01/09/25 13:27 Freq: Status: Active Protocol: Document 01/11/25 11:32 GG (Rec: 01/11/25 12:34 GG [id number]) Current Condition History of Current Condition Onset Date 12/28/24 Current Complaints 2 weeks s/p R supraspinatus repair History of Current Pt presents in simple sling on R arm. RC repair Condition following full supraspinatus tear on R shoulder. R hand -dominant. 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 Was initially told it was biceps tendinitis and was given some exercises to try, after no change she went back in and they found tear. No issues during surgery, and has weaned off opiate medications and only taking OTC NSAIDS. Notes more difficulty w/ sleeping d/t pain. Sleeps in recliner. Has a good support system to bring her to/from appts. 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 Likes drawing. Can currently do light vacuuming and can walk small dog w/ her L hand. Has been moving around her wrist and squeezing a ball. Had to stop doing yoga since injury. Notes some R neck stiffness since surgery, which she thinks is due sleeping in recliner. Going to [facility] 01/21 to stay w/ a friend and is scheduled to go to PT over there as well. Had surgery f/u yesterday and got stitches removed. Treatment Goals Patient/Caregiver driving, drawing, cleaning, yoga, strengthening, Goals showering/putting hair up and other self-hygiene, donning/doffing bra PT-OP-C Subjective Start: 01/09/25 13:27 Freq: Status: Active Protocol: Document 02/14/25 15:24 [facility] (Rec: 02/14/25 16:36 [facility] [id number]) OP-PT Subjective Patient Comments Patient Comments From other PT, doctor does not want pt out of sling until sees her surgeon thursday and does not want pt doing self PROM. Okay with tbar. Frustrated and worried that she is getting frozen shoulder. Feels like arm and lower arm is tight. PT-OP-J Posture/Palpation/Skin Start: 01/09/25 13:27 Freq: Status: Active Protocol: Document 01/11/25 11:32 GG (Rec: 01/11/25 13:40 GG [id number]) Skin Assessment Incisional Assessment Incision Appearance/ four small incision about 1-2cm in length from Comments laparoscope around R shoulder; sutures removed, but still has mechanical closure. no excessive inflammation or swelling present. PT-OP-K Range of Motion Start: 01/09/25 13:27 Freq: Status: Active Protocol: Document 02/14/25 15:24 [facility] (Rec: 02/14/25 16:36 [facility] [id number]) Shoulder Goniometric Range of Motion Shoulder Right Passive Flexion 115 Extension 47 Abduction 81 External Rotation at 28 45 degrees Abduction Internal Rotation 68 Comments ER/IR in scaption PT-OP-Q Treatments Start: 01/09/25 13:27 Freq: Status: Active Protocol: Document 02/14/25 15:24 [facility] (Rec: 02/14/25 16:36 [facility] [id number]) Manual Therapy Treatment Consent Patient gave verbal Yes consent for manual treatment Soft Tissue Mobilization cervical Body Location R parapsinals and scalenes Mobilization Type Rolling Intensity/Depth Moderate Body Position Sidelying pec Body Location R Mobilization Type Sustained Pressure Comments w/ passive flex Joint Mobilizations ribs Comments AP rib 1 and 2 w/cervical rot, caudal rib 2-3 s/l w/ breathing, caudal rib 1 w/SB thoracic Comments PA T1-3 c/r into trunk ext; T1-3 transverse L c/r trunk rot SC Comments R distraction and inf glide AC Comments ant clavicle s/l R shoulder Comments R gentle distraction Manual Techniques PROM Comments PROM PT-OP-T Assessment and Plan Start: 01/09/25 13:27 Freq: Status: Active Protocol: Document 02/14/25 15:24 [facility] (Rec: 02/14/25 16:36 [facility] [id number]) Physical Therapy Assessment Goals ROM Short Term Goal (STG Pt will be able get at least 120 deg active shoulder ) flexion and 60 deg active ER of the R shoulder for better ability to complete self-hygiene. 02/14-PROM improved, not cleared for AROM STG Duration 02/24/25 Horseradish Maker Goal (LTG) Pt will have shoulder ROM equal to or greater than L shoulder for better function during work and yoga. LTG Duration 04/05/25 work Mcfp Goal (LTG) Pt will be able to resume light work activities w/o pain exceeding 3/10 to show improved function and ability to meet job requirements. LTG Duration 04/05/25 quickDASH Impairment 70% Short Term Goal (STG Pt will score at least a 40% on quickDASH to show ) improving functional ability w/o being limited by pain. 02/14-n/t STG Duration 02/24/25 Horseradish Maker Goal (LTG) Pt will score at least a 10% or less on quickDASH to show improved functional ability w/o being limited by pain. LTG Duration 04/05/25 Assessment Summary Assessment pt had improved PROm flex to 131 deg after manual and improved ER in scap plane to 50 deg and had less ant shear of humerus w/IR after manual along w/notable less tension and pain along w/improved cervical and trunk rotation R. She is limited by her progression d/t protocol but had some recent set back d/t tension likely from sling. She is now cleared per MD call for AAROM and to take off sling and pt will benefit from cont PT to progress mobility and dec pain. Physical Therapy Plan Frequency and Duration Frequency of 2x/Week Treatment Duration of 12 treatment (weeks) Plan of Care Start 01/11/25 Date Plan of Care End 04/05/25 Date Therapeutic Interventions Therapeutic Home Exercise Program,Joint Mobilizations,Manual Interventions Therapy,Neuromuscular Re-education,Patient/Caregiver Education,Self-Care/Home Management,Soft Tissue Mobilization,Taping,Therapeutic Activities,Therapeutic Exercises Modalities Cold Pack/Ice Massage,Electric Stimulation,Hot Packs, Infrared Therapy,Ultrasound Next Visit Focus/Plan Next Note Type Treatment Note Next Visit Plan AAROM training (musa mann, table slides), manual to ribcage and shoulder complex
--- NOTE | 2025-02-16 10:21 | PT.OTN ---
Current Diagnoses Complete rotator cuff tear or rupture of right shoulder, not specified as traumatic (02/16/25) Physical Therapy Treatment Note PT-OP-A Visit Information Start: 01/09/25 13:27 Freq: Status: Active Protocol: Document 02/16/25 07:30 LR (Rec: 02/16/25 10:21 [facility] [id number]) Out-Patient Physical Therapy Visit Information Visit Information Visit Type Treatment Note Visit Start Time 07:34 Visit Stop Time 08:14 Visit Number 6 Number of LAND SURVEY TECHNICIAN Visits 0 PT-OP-B Current Condition Start: 01/09/25 13:27 Freq: Status: Active Protocol: Document 01/11/25 11:32 GG (Rec: 01/11/25 12:34 GG [id number]) Current Condition History of Current Condition Onset Date 12/28/24 Current Complaints 2 weeks s/p R supraspinatus repair History of Current Pt presents in simple sling on R arm. RC repair Condition following full supraspinatus tear on R shoulder. R hand -dominant. 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 Was initially told it was biceps tendinitis and was given some exercises to try, after no change she went back in and they found tear. No issues during surgery, and has weaned off opiate medications and only taking OTC NSAIDS. Notes more difficulty w/ sleeping d/t pain. Sleeps in recliner. Has a good support system to bring her to/from appts. 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 Likes drawing. Can currently do light vacuuming and can walk small dog w/ her L hand. Has been moving around her wrist and squeezing a ball. Had to stop doing yoga since injury. Notes some R neck stiffness since surgery, which she thinks is due sleeping in recliner. Going to [facility] 01/21 to stay w/ a friend and is scheduled to go to PT over there as well. Had surgery f/u yesterday and got stitches removed. Treatment Goals Patient/Caregiver driving, drawing, cleaning, yoga, strengthening, Goals showering/putting hair up and other self-hygiene, donning/doffing bra PT-OP-C Subjective Start: 01/09/25 13:27 Freq: Status: Active Protocol: Document 02/16/25 07:30 [facility] (Rec: 02/16/25 10:21 [facility] [id number]) OP-PT Subjective Patient Comments Patient Comments Pt reports has taken sling off. Can't lift arm but is using it for coffee PT-OP-J Posture/Palpation/Skin Start: 01/09/25 13:27 Freq: Status: Active Protocol: Document 01/11/25 11:32 GG (Rec: 01/11/25 13:40 GG [id number]) Skin Assessment Incisional Assessment Incision Appearance/ four small incision about 1-2cm in length from Comments laparoscope around R shoulder; sutures removed, but still has mechanical closure. no excessive inflammation or swelling present. PT-OP-K Range of Motion Start: 01/09/25 13:27 Freq: Status: Active Protocol: Document 02/14/25 15:24 [facility] (Rec: 02/14/25 16:36 [facility] [id number]) Shoulder Goniometric Range of Motion Shoulder Right Passive Flexion 115 Extension 47 Abduction 81 External Rotation at 28 45 degrees Abduction Internal Rotation 68 Comments ER/IR in scaption PT-OP-Q Treatments Start: 01/09/25 13:27 Freq: Status: Active Protocol: Document 02/16/25 07:30 [facility] (Rec: 02/16/25 10:21 [facility] [id number]) Therapeutic Exercises Supine Exercises foam roll Supine Exercise Name 1. gentle HAbd (at about 45 deg) 2. opp UE assisted flex Side bilateral Reps/Minutes 1. 30 sec 2. 10 AAROM Supine Exercise Name 1. chest press to flex 2. ER elbow at side Side right Reps/Minutes 20 ea Sitting Exercises mackenzie Sitting Exercise 1. flex 2. scaption Name Side right Reps/Minutes 20 AAROM Sitting Exercise 1. table slide flex 2. table slide abd Name Side bilateral Reps/Minutes 15 ea Standing Exercises stretch Standing Exercise sink stretch flex Name Side bilateral Reps/Minutes 15 sec x6 ext Standing Exercise AAROM cane Name Side right Reps/Minutes 20 Other Exercises fwd lean Other Exercise Name counter Manual Therapy Treatment Consent Patient gave verbal Yes consent for manual treatment Soft Tissue Mobilization cupping Comments R pec, post delt, lats/teres w/flex PROM biceps Comments circumferential biceps and humerus w/rot pec Body Location R Mobilization Type Sustained Pressure Comments w/ passive flex Joint Mobilizations ribs Comments general downward glide of ribs 5-8 w/ shoulder shrug thoracic Comments transverse T 5-6 w/shoulder shrug c/r AC Comments ant clavicle w/flex c/r R shoulder Comments R distraction, lat gapping and post glide PT-OP-T Assessment and Plan Start: 01/09/25 13:27 Freq: Status: Active Protocol: Document 02/16/25 07:30 [facility] (Rec: 02/16/25 10:21 [facility] [id number]) Physical Therapy Assessment Goals ROM Short Term Goal (STG Pt will be able get at least 120 deg active shoulder ) flexion and 60 deg active ER of the R shoulder for better ability to complete self-hygiene. 02/14-PROM improved, not cleared for AROM STG Duration 02/24/25 Compound Machine Operator Goal (LTG) Pt will have shoulder ROM equal to or greater than L shoulder for better function during work and yoga. LTG Duration 04/05/25 work Compound Machine Operator Goal (LTG) Pt will be able to resume light work activities w/o pain exceeding 3/10 to show improved function and ability to meet job requirements. LTG Duration 04/05/25 quickDASH Impairment 70% Short Term Goal (STG Pt will score at least a 40% on quickDASH to show ) improving functional ability w/o being limited by pain. 02/14-n/t STG Duration 02/24/25 Compound Machine Operator Goal (LTG) Pt will score at least a 10% or less on quickDASH to show improved functional ability w/o being limited by pain. LTG Duration 04/05/25 Assessment Summary Assessment Pt did well with progression of AAROM and encouraged to participate in this multiple times a day to gradually improve this at home. She was educated to stay in comfortable range with exercises. Still has capsular stiffness into end range flex, abd, and rotations. Physical Therapy Plan Frequency and Duration Frequency of 2x/Week Treatment Duration of 12 treatment (weeks) Plan of Care Start 01/11/25 Date Plan of Care End 04/05/25 Date Next Visit Focus/Plan Next Note Type Treatment Note Next Visit Plan ask re: doctor appt, AAROM training (mackenzie, musa, table slides), manual to ribcage and shoulder complex
--- NOTE | 2025-02-21 16:20 | PT.OTN ---
Current Diagnoses Complete rotator cuff tear or rupture of right shoulder, not specified as traumatic (02/21/25) Physical Therapy Treatment Note PT-OP-A Visit Information Start: 01/09/25 13:27 Freq: Status: Active Protocol: Document 02/21/25 15:18 [facility] (Rec: 02/21/25 16:20 [facility] [id number]) Out-Patient Physical Therapy Visit Information Visit Information Visit Type Treatment Note Visit Start Time 15:19 Visit Stop Time 15:59 Visit Number 7 Number of SHIELD CLEANER Visits 0 PT-OP-B Current Condition Start: 01/09/25 13:27 Freq: Status: Active Protocol: Document 01/11/25 11:32 GG (Rec: 01/11/25 12:34 GG [id number]) Current Condition History of Current Condition Onset Date 12/28/24 Current Complaints 2 weeks s/p R supraspinatus repair History of Current Pt presents in simple sling on R arm. RC repair Condition following full supraspinatus tear on R shoulder. R hand -dominant. 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 Was initially told it was biceps tendinitis and was given some exercises to try, after no change she went back in and they found tear. No issues during surgery, and has weaned off opiate medications and only taking OTC NSAIDS. Notes more difficulty w/ sleeping d/t pain. Sleeps in recliner. Has a good support system to bring her to/from appts. 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 Likes drawing. Can currently do light vacuuming and can walk small dog w/ her L hand. Has been moving around her wrist and squeezing a ball. Had to stop doing yoga since injury. Notes some R neck stiffness since surgery, which she thinks is due sleeping in recliner. Going to [facility] 01/21 to stay w/ a friend and is scheduled to go to PT over there as well. Had surgery f/u yesterday and got stitches removed. Treatment Goals Patient/Caregiver driving, drawing, cleaning, yoga, strengthening, Goals showering/putting hair up and other self-hygiene, donning/doffing bra PT-OP-C Subjective Start: 01/09/25 13:27 Freq: Status: Active Protocol: Document 02/21/25 15:18 [facility] (Rec: 02/21/25 16:20 [facility] [id number]) OP-PT Subjective Patient Comments Patient Comments saw surgeon, who said she could move into some more resistance stuff. next appt is end of mar. PT-OP-J Posture/Palpation/Skin Start: 01/09/25 13:27 Freq: Status: Active Protocol: Document 01/11/25 11:32 GG (Rec: 01/11/25 13:40 GG [id number]) Skin Assessment Incisional Assessment Incision Appearance/ four small incision about 1-2cm in length from Comments laparoscope around R shoulder; sutures removed, but still has mechanical closure. no excessive inflammation or swelling present. PT-OP-K Range of Motion Start: 01/09/25 13:27 Freq: Status: Active Protocol: Document 02/14/25 15:24 [facility] (Rec: 02/14/25 16:36 [facility] [id number]) Shoulder Goniometric Range of Motion Shoulder Right Passive Flexion 115 Extension 47 Abduction 81 External Rotation at 28 45 degrees Abduction Internal Rotation 68 Comments ER/IR in scaption PT-OP-Q Treatments Start: 01/09/25 13:27 Freq: Status: Active Protocol: Document 02/21/25 15:18 [facility] (Rec: 02/21/25 16:20 [facility] [id number]) Therapeutic Exercises Supine Exercises AAROM Supine Exercise Name 1. chest press to flex 2. flex 3.ER elbow at side 3. scaption Side right Equipment Used dowel Reps/Minutes 8 ea elbow flexion Supine Exercise Name w/ER hands on head Reps/Minutes 30 secx2 Sitting Exercises mackenzie Sitting Exercise 1. flex 2. scaption Name Side right Reps/Minutes 10 ea AAROM Sitting Exercise 1. table slide flex 2. table slide abd Name Side bilateral Reps/Minutes 8 ea Comments cues set up Standing Exercises stretch Standing Exercise sink stretch flex Name Side bilateral Reps/Minutes 30 sec x2 ext Standing Exercise AAROM cane Name Side right Reps/Minutes 10 Manual Therapy Treatment Consent Patient gave verbal Yes consent for manual treatment Soft Tissue Mobilization cupping Comments R lats w/tomy pose biceps Comments circumferential biceps and humerus w/rot Joint Mobilizations ribs Comments caudal ribs 1-3 c/r thoracic Comments UPA R T2-5 prone AC Comments ant clavicle w/flex c/r and percussion R shoulder Comments R distraction, lat gapping and post glide PT-OP-T Assessment and Plan Start: 01/09/25 13:27 Freq: Status: Active Protocol: Document 02/21/25 15:18 [facility] (Rec: 02/21/25 16:20 [facility] [id number]) Physical Therapy Assessment Goals ROM Short Term Goal (STG Pt will be able get at least 120 deg active shoulder ) flexion and 60 deg active ER of the R shoulder for better ability to complete self-hygiene. 02/14-PROM improved, not cleared for AROM STG Duration 02/24/25 Broke Worker Goal (LTG) Pt will have shoulder ROM equal to or greater than L shoulder for better function during work and yoga. LTG Duration 04/05/25 work Broke Worker Goal (LTG) Pt will be able to resume light work activities w/o pain exceeding 3/10 to show improved function and ability to meet job requirements. LTG Duration 04/05/25 quickDASH Impairment 70% Short Term Goal (STG Pt will score at least a 40% on quickDASH to show ) improving functional ability w/o being limited by pain. 02/14-n/t STG Duration 02/24/25 Usp Goal (LTG) Pt will score at least a 10% or less on quickDASH to show improved functional ability w/o being limited by pain. LTG Duration 04/05/25 Assessment Summary Assessment Pt required cues to avoid shrugging during exercises. improving ROM w/manual and treatment Physical Therapy Plan Frequency and Duration Frequency of 2x/Week Treatment Duration of 12 treatment (weeks) Plan of Care Start 01/11/25 Date Plan of Care End 04/05/25 Date Therapeutic Interventions Therapeutic Home Exercise Program,Joint Mobilizations,Manual Interventions Therapy,Neuromuscular Re-education,Patient/Caregiver Education,Self-Care/Home Management,Soft Tissue Mobilization,Taping,Therapeutic Activities,Therapeutic Exercises Modalities Cold Pack/Ice Massage,Electric Stimulation,Hot Packs, Infrared Therapy,Ultrasound Next Visit Focus/Plan Next Note Type Treatment Note Next Visit Plan ask re: doctor appt, AAROM training (mackenzie, bar, table slides), manual to ribcage and shoulder complex
--- NOTE | 2025-02-23 19:04 | PT.OTN ---
Current Diagnoses Complete rotator cuff tear or rupture of right shoulder, not specified as traumatic (02/23/25) Physical Therapy Treatment Note PT-OP-A Visit Information Start: 01/09/25 13:27 Freq: Status: Active Protocol: Document 02/23/25 13:47 LR (Rec: 02/23/25 19:04 [facility] [id number]) Out-Patient Physical Therapy Visit Information Visit Information Visit Type Treatment Note Visit Start Time 15:20 Visit Stop Time 16:10 Visit Number 8 Number of SUPERVISOR SPINNING Visits 0 PT-OP-B Current Condition Start: 01/09/25 13:27 Freq: Status: Active Protocol: Document 01/11/25 11:32 GG (Rec: 01/11/25 12:34 GG [id number]) Current Condition History of Current Condition Onset Date 12/28/24 Current Complaints 2 weeks s/p R supraspinatus repair History of Current Pt presents in simple sling on R arm. RC repair Condition following full supraspinatus tear on R shoulder. R hand -dominant. 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 Was initially told it was biceps tendinitis and was given some exercises to try, after no change she went back in and they found tear. No issues during surgery, and has weaned off opiate medications and only taking OTC NSAIDS. Notes more difficulty w/ sleeping d/t pain. Sleeps in recliner. Has a good support system to bring her to/from appts. 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 Likes drawing. Can currently do light vacuuming and can walk small dog w/ her L hand. Has been moving around her wrist and squeezing a ball. Had to stop doing yoga since injury. Notes some R neck stiffness since surgery, which she thinks is due sleeping in recliner. Going to [facility] 01/21 to stay w/ a friend and is scheduled to go to PT over there as well. Had surgery f/u yesterday and got stitches removed. Treatment Goals Patient/Caregiver driving, drawing, cleaning, yoga, strengthening, Goals showering/putting hair up and other self-hygiene, donning/doffing bra PT-OP-C Subjective Start: 01/09/25 13:27 Freq: Status: Active Protocol: Document 02/23/25 13:47 [facility] (Rec: 02/23/25 19:04 [facility] [id number]) OP-PT Subjective Patient Comments Patient Comments pt reports she has been sore recently PT-OP-J Posture/Palpation/Skin Start: 01/09/25 13:27 Freq: Status: Active Protocol: Document 01/11/25 11:32 GG (Rec: 01/11/25 13:40 GG [id number]) Skin Assessment Incisional Assessment Incision Appearance/ four small incision about 1-2cm in length from Comments laparoscope around R shoulder; sutures removed, but still has mechanical closure. no excessive inflammation or swelling present. PT-OP-K Range of Motion Start: 01/09/25 13:27 Freq: Status: Active Protocol: Document 02/14/25 15:24 [facility] (Rec: 02/14/25 16:36 [facility] [id number]) Shoulder Goniometric Range of Motion Shoulder Right Passive Flexion 115 Extension 47 Abduction 81 External Rotation at 28 45 degrees Abduction Internal Rotation 68 Comments ER/IR in scaption PT-OP-Q Treatments Start: 01/09/25 13:27 Freq: Status: Active Protocol: Document 02/23/25 13:47 [facility] (Rec: 02/23/25 19:04 [facility] [id number]) Therapeutic Exercises Standing Exercises wall crawl Standing Exercise flex Name Side bilateral Reps/Minutes 10 ext Side bilateral Equipment Used L1 band Reps/Minutes 15 Comments cues scap Manual Therapy Treatment Consent Patient gave verbal Yes consent for manual treatment Soft Tissue Mobilization post Comments lats, teres, subscap w/rotation & abd biceps Comments circumferential biceps and humerus w/rot pec Body Location R Mobilization Type Sustained Pressure Comments w/ passive flex Joint Mobilizations AC Comments APclavicle w/flex c/r R shoulder Comments R distraction, lat gapping and post glide PT-OP-R Modalities Start: 01/09/25 13:27 Freq: Status: Active Protocol: Document 02/23/25 13:47 [facility] (Rec: 02/23/25 19:04 [facility] [id number]) Hot Pack/Cold Pack Treatment Cold Pack Location R shoulder Patient Position Supine PT-OP-T Assessment and Plan Start: 01/09/25 13:27 Freq: Status: Active Protocol: Document 02/23/25 13:47 [facility] (Rec: 02/23/25 19:04 [facility] [id number]) Physical Therapy Assessment Goals ROM Short Term Goal (STG Pt will be able get at least 120 deg active shoulder ) flexion and 60 deg active ER of the R shoulder for better ability to complete self-hygiene. 02/14-PROM improved, not cleared for AROM STG Duration 02/24/25 Correction Goal (LTG) Pt will have shoulder ROM equal to or greater than L shoulder for better function during work and yoga. LTG Duration 04/05/25 work Correction Goal (LTG) Pt will be able to resume light work activities w/o pain exceeding 3/10 to show improved function and ability to meet job requirements. LTG Duration 04/05/25 quickDASH Impairment 70% Short Term Goal (STG Pt will score at least a 40% on quickDASH to show ) improving functional ability w/o being limited by pain. 02/14-n/t STG Duration 02/24/25 Senior Contract Specialist Goal (LTG) Pt will score at least a 10% or less on quickDASH to show improved functional ability w/o being limited by pain. LTG Duration 04/05/25 Assessment Summary Assessment pt is improving w/ROM and had 130 at start of manual and 138 deg at the end of manual care. Physical Therapy Plan Frequency and Duration Frequency of 2x/Week Treatment Duration of 12 treatment (weeks) Plan of Care Start 01/11/25 Date Plan of Care End 04/05/25 Date Next Visit Focus/Plan Next Note Type Treatment Note Next Visit Plan AAROM training (mackenzie, musa, table slides), manual to ribcage and shoulder complex
--- NOTE | 2025-02-27 16:14 | PT.OTN ---
Current Diagnoses Complete rotator cuff tear or rupture of right shoulder, not specified as traumatic (02/27/25) Physical Therapy Treatment Note PT-OP-A Visit Information Start: 01/09/25 13:27 Freq: Status: Active Protocol: Document 02/27/25 15:17 LR (Rec: 02/27/25 16:14 [facility] [id number]) Out-Patient Physical Therapy Visit Information Visit Information Visit Type Treatment Note Visit Start Time 15:21 Visit Stop Time 16:00 Visit Number 9 Number of SAFEKEEPING CLERK Visits 0 PT-OP-B Current Condition Start: 01/09/25 13:27 Freq: Status: Active Protocol: Document 01/11/25 11:32 GG (Rec: 01/11/25 12:34 GG [id number]) Current Condition History of Current Condition Onset Date 12/28/24 Current Complaints 2 weeks s/p R supraspinatus repair History of Current Pt presents in simple sling on R arm. RC repair Condition following full supraspinatus tear on R shoulder. R hand -dominant. 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 Was initially told it was biceps tendinitis and was given some exercises to try, after no change she went back in and they found tear. No issues during surgery, and has weaned off opiate medications and only taking OTC NSAIDS. Notes more difficulty w/ sleeping d/t pain. Sleeps in recliner. Has a good support system to bring her to/from appts. 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 Likes drawing. Can currently do light vacuuming and can walk small dog w/ her L hand. Has been moving around her wrist and squeezing a ball. Had to stop doing yoga since injury. Notes some R neck stiffness since surgery, which she thinks is due sleeping in recliner. Going to [facility] 01/21 to stay w/ a friend and is scheduled to go to PT over there as well. Had surgery f/u yesterday and got stitches removed. 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 REally sore. PT-OP-J Posture/Palpation/Skin Start: 01/09/25 13:27 Freq: Status: Active Protocol: Document 01/11/25 11:32 GG (Rec: 01/11/25 13:40 GG [id number]) Skin Assessment Incisional Assessment Incision Appearance/ four small incision about 1-2cm in length from Comments laparoscope around R shoulder; sutures removed, but still has mechanical closure. no excessive inflammation or swelling present. PT-OP-K Range of Motion Start: 01/09/25 13:27 Freq: Status: Active Protocol: Document 02/14/25 15:24 [facility] (Rec: 02/14/25 16:36 [facility] [id number]) Shoulder Goniometric Range of Motion Shoulder Right Passive Flexion 115 Extension 47 Abduction 81 External Rotation at 28 45 degrees Abduction Internal Rotation 68 Comments ER/IR in scaption PT-OP-Q Treatments Start: 01/09/25 13:27 Freq: Status: Active Protocol: Document 02/27/25 15:17 [facility] (Rec: 02/27/25 16:14 [facility] [id number]) Therapeutic Exercises Sidelying Exercises ER Side right Equipment Used towel at side Reps/Minutes 15 abd Sidelying Exercise to 90 Name Side right Reps/Minutes 12 Standing Exercises IR/ER Standing Exercise comfortable range Name Side right Equipment Used L1 Reps/Minutes 10 ea Comments cues elbow at side ext Side bilateral Equipment Used L1 band Reps/Minutes 15 Comments cues scap Manual Therapy Treatment Consent Patient gave verbal Yes consent for manual treatment Soft Tissue Mobilization post Comments lats, teres, subscap w/rotation & abd biceps Comments circumferential biceps and humerus w/rot cervical Body Location R parapsinals and scalenes Mobilization Type Rolling Intensity/Depth Moderate Body Position Sidelying pec Body Location R Mobilization Type Sustained Pressure Comments w/ passive flex Joint Mobilizations ribs Comments AP rib 2 thoracic Comments transverse T 2 R SC Comments sup and inf w/scap motions R shoulder Comments R distraction, lat gapping and post glide Taping taping Comments deltoid Y tape, supraspinatus Y tape, I strip from ant to post PT-OP-R Modalities Start: 01/09/25 13:27 Freq: Status: Active Protocol: Document 02/23/25 13:47 [facility] (Rec: 02/23/25 19:04 [facility] [id number]) Hot Pack/Cold Pack Treatment Cold Pack Location R shoulder Patient Position Supine PT-OP-T Assessment and Plan Start: 01/09/25 13:27 Freq: Status: Active Protocol: Document 02/27/25 15:17 [facility] (Rec: 02/27/25 16:14 [facility] [id number]) Physical Therapy Assessment Goals ROM Short Term Goal (STG Pt will be able get at least 120 deg active shoulder ) flexion and 60 deg active ER of the R shoulder for better ability to complete self-hygiene. 02/14-PROM improved, not cleared for AROM STG Duration 02/24/25 Gang Rider Goal (LTG) Pt will have shoulder ROM equal to or greater than L shoulder for better function during work and yoga. LTG Duration 04/05/25 work Gang Rider Goal (LTG) Pt will be able to resume light work activities w/o pain exceeding 3/10 to show improved function and ability to meet job requirements. LTG Duration 04/05/25 quickDASH Impairment 70% Short Term Goal (STG Pt will score at least a 40% on quickDASH to show ) improving functional ability w/o being limited by pain. 02/14-n/t STG Duration 02/24/25 Mcc Goal (LTG) Pt will score at least a 10% or less on quickDASH to show improved functional ability w/o being limited by pain. LTG Duration 04/05/25 Assessment Summary Assessment Pt felt relief and had greater ease of going to hand on head position to reach for hair after session today. able to tolerate progression exercises Physical Therapy Plan Frequency and Duration Frequency of 2x/Week Treatment Duration of 12 treatment (weeks) Plan of Care Start 01/11/25 Date Plan of Care End 04/05/25 Date Next Visit Focus/Plan Next Note Type Treatment Note Next Visit Plan cont to advance ROM (AROM , AAROM), start gentle resitance
--- NOTE | 2025-03-01 09:51 | PT.OTN ---
Current Diagnoses Complete rotator cuff tear or rupture of right shoulder, not specified as traumatic (03/01/25) Physical Therapy Treatment Note PT OP: Cervical/Upper Extremity Start: 03/01/25 07:18 Freq: Status: Active Protocol: Document 03/01/25 07:19 AB (Rec: 03/01/25 08:23 AB [id number]) Out-Patient Physical Therapy Visit Information Visit Information Visit Type Treatment Note Visit Note Access Code [email or web address] Visit Start Time 07:30 Visit Stop Time 08:17 Visit Number 10 Number of CHECKOUT SUPERVISOR Visits 1 Progress Note Due 03/16/25 OP-PT Subjective Patient Comments Patient Comments Patient reports she feels like a rib is out and the scapula is painful 7/10 pain and it feels like it is difficult to breath due to the pain. AROM 94 deg flexion AROM R shoulder start of session. Therapeutic Exercises Supine Exercises supine shoulder flexion Side bilateral Reps/Minutes X 6 Comments Verbal cues for 10 sec hold and finger resistance lowering UE Sidelying Exercises ER Side right Equipment Used towel at side Reps/Minutes 15 Comments VC for full ROM and to avoid wrist ext Sitting Exercises mackenzie Sitting Exercise 2. scaption Name Side right Reps/Minutes 2 min Comments Mirror in front, VC to avoid UT activation AAROM Sitting Exercise 1. table slide flex 2. table slide abd Name Side bilateral Reps/Minutes 8 ea Comments cues set up stretches Sitting Exercise UT and LS holding seat Name Side bilateral Reps/Minutes 60 sec x 2 R X 1 L with AROM CS rotation X 10 Comments verbal cues Standing Exercises wall crawl Standing Exercise flex Pt ed less reps more often during day Name Side bilateral Reps/Minutes 5 Comments using opp hand on shoulder tac cue to avoid Ut activation, Manual Therapy Treatment Consent Patient gave verbal Yes consent for manual treatment Soft Tissue Mobilization UT, levator scap Body Location R Mobilization Type Cross-Friction,Rolling,Sustained Pressure Intensity/Depth Moderate Body Position Sitting Comments to deep for levator scap pec Body Location R Mobilization Type Cross-Friction,Rolling Joint Mobilizations scapular mobilization R Direction dep and add Grade IV Body Position Sidelying Reps/Duration X 10 each R shoulder Joint GH Direction AP and inf Grade III Body Position Hooklying Reps/Duration 3X10 each Taping taping Comments over current tape with patient with instructions to remove in 2 days I strip to UT and I strip levator scap ins to orig one I strip ant GH to scap for posture Manual Techniques PROM Type contract relax into R shoulder ER X 2 Physical Therapy Assessment Goals ROM Short Term Goal (STG Pt will be able get at least 120 deg active shoulder ) flexion and 60 deg active ER of the R shoulder for better ability to complete self-hygiene. 02/14-PROM improved, not cleared for AROM STG Duration 02/24/25 Public Health Teacher Goal (LTG) Pt will have shoulder ROM equal to or greater than L shoulder for better function during work and yoga. LTG Duration 04/05/25 work Intermediate Goal (LTG) Pt will be able to resume light work activities w/o pain exceeding 3/10 to show improved function and ability to meet job requirements. LTG Duration 04/05/25 quickDASH Impairment 70% Short Term Goal (STG Pt will score at least a 40% on quickDASH to show ) improving functional ability w/o being limited by pain. 02/14-n/t STG Duration 02/24/25 Public Health Teacher Goal (LTG) Pt will score at least a 10% or less on quickDASH to show improved functional ability w/o being limited by pain. LTG Duration 04/05/25 Assessment Summary Assessment 107 deg AROM R shoulder flexion end of session. Physical Therapy Plan Frequency and Duration Frequency of 2x/Week Treatment Duration of 12 treatment (weeks) Plan of Care Start 01/11/25 Date Plan of Care End 04/05/25 Date Next Visit Focus/Plan Next Note Type Treatment Note Next Visit Plan cont to advance ROM (AROM , AAROM), start gentle resitance
--- NOTE | 2025-03-06 17:54 | PT.OTN ---
Current Diagnoses Complete rotator cuff tear or rupture of right shoulder, not specified as traumatic (03/06/25) Physical Therapy Treatment Note PT OP: Cervical/Upper Extremity Start: 03/01/25 07:18 Freq: Status: Active Protocol: Document 03/06/25 16:53 [facility] (Rec: 03/06/25 17:54 [facility] [id number]) Out-Patient Physical Therapy Visit Information Visit Information Visit Type Treatment Note Visit Note Access Code [email or web address] Visit Start Time 16:56 Visit Stop Time 17:38 Visit Number 11 Number of DISH UP PERSON Visits 0 Progress Note Due 03/16/25 OP-PT Subjective Patient Comments Patient Comments had to ease off for a couple days where she did things twice a day because pec felt tight and arm ached. She is going to acupuncture again this thursday. She feels like she can't feel the lifting of her shoulder. taking tylenol a couple times a day. When she wakes up it is sore. Therapeutic Exercises Supine Exercises supine shoulder flexion Side bilateral Reps/Minutes 10 sec x3 Sidelying Exercises abd Sidelying Exercise to 90 Name Side right Reps/Minutes 15 Sitting Exercises mackenzie Sitting Exercise 1. flex 2. abd 3. IR standing Name Side right Reps/Minutes 15 ea Comments cues for avoiding shrug stretches Sitting Exercise 1. UT 2. LS Name Side right Reps/Minutes 30 sec Standing Exercises biceps Side bilateral Equipment Used Lvl 1 band Reps/Minutes 15 IR/ER Standing Exercise comfortable range Name Side right Equipment Used L1 Reps/Minutes 10 ea Comments cues elbow at side wall crawl Standing Exercise abd Name Side right Reps/Minutes 5 stretch Standing Exercise 1. pec elbow straight 2. 90/90 Name Side right Reps/Minutes 1. 20 sec 2. 30 sec x2 ext Side bilateral Equipment Used L2 band Reps/Minutes 15 Comments cues scap Manual Therapy Treatment Consent Patient gave verbal Yes consent for manual treatment Soft Tissue Mobilization post Comments lats, teres, subscap w/flex pec Body Location R Mobilization Type Cross-Friction,Rolling Comments w/abd Joint Mobilizations R shoulder Comments post glide c/r w/HAbd, post translation c/r neutral, post glide w/IR c/r Physical Therapy Assessment Goals ROM Short Term Goal (STG Pt will be able get at least 120 deg active shoulder ) flexion and 60 deg active ER of the R shoulder for better ability to complete self-hygiene. 02/14-PROM improved, not cleared for AROM STG Duration 02/24/25 Latin American Studies Professor Goal (LTG) Pt will have shoulder ROM equal to or greater than L shoulder for better function during work and yoga. LTG Duration 04/05/25 work Latin American Studies Professor Goal (LTG) Pt will be able to resume light work activities w/o pain exceeding 3/10 to show improved function and ability to meet job requirements. LTG Duration 04/05/25 quickDASH Impairment 70% Short Term Goal (STG Pt will score at least a 40% on quickDASH to show ) improving functional ability w/o being limited by pain. 02/14-n/t STG Duration 02/24/25 Latin American Studies Professor Goal (LTG) Pt will score at least a 10% or less on quickDASH to show improved functional ability w/o being limited by pain. LTG Duration 04/05/25 Assessment Summary Assessment Pt cont to require cues w/scap movement. New long HEP given for all to focus on between AAROM, stretching and strength. She did well iwth exercises. continues to be limited especially w/overhead mobility with some PT concern for frozen shoulder. Physical Therapy Plan Frequency and Duration Frequency of 2x/Week Treatment Duration of 12 treatment (weeks) Plan of Care Start 01/11/25 Date Plan of Care End 04/05/25 Date Next Visit Focus/Plan Next Note Type Progress Note Next Visit Plan cont to advance ROM (AROM , AAROM), start gentle resitance
--- NOTE | 2025-03-09 18:17 | PT.OPPOC ---
Addendum entered and electronically signed by Chikis Vu, PT 03/09/25 18:21: POC sent Original Note: Physical, Occupational & Speech Therapy At [facility] Current Diagnoses Complete rotator cuff tear or rupture of right shoulder, not specified as traumatic (03/09/25) Visit Care Team Role Provider Type Doctor MD Tori Primary Care Provider Non-Staff Specialty: Medical Address: Phone: Fax: Email: Taurus Muir DO Attending Provider Non-Staff Family Provider Referring Provider Specialty: Orthopedics Address: [address] [place] [address] [address], [place], [address] opt2 Email: Plan Of Care PT OP: Cervical/Upper Extremity Start: 03/01/25 07:18 Freq: Status: Active Protocol: Document 03/09/25 16:24 [facility] (Rec: 03/09/25 17:03 [facility] [id number]) Out-Patient Physical Therapy Visit Information Visit Information Visit Type Progress Note Visit Start Time 16:20 Visit Stop Time 17:00 Visit Number 12 Number of BUYER LIAISON Visits 0 Progress Note Due 04/08/25 OP-PT Subjective Patient Comments Patient Comments Pt reports she feels much better today. feels like pec is looser Patient Questionnaires Quick Dash- Upper Extremity Quick Dash UE Score 25 Shoulder Goniometric Range of Motion Shoulder Measured in Degrees Right Active Flexion 107 Extension 69 Abduction 89 External Rotation at 60 0 degrees Abduction Internal Rotation T12 Behind Back (text) Right Passive Flexion 126 Abduction 98 External Rotation at 48 45 degrees Abduction Internal Rotation 72 Comments ER/IR in scaption Shoulder Strength Shoulder Manual Muscle Testing Right Flexion 3+ Fair+ Extension 4 Good Abduction (C5) 3+ Fair+ External Rotation 3+ Fair+ Internal Rotation 4 Good Left Flexion 5 Normal Extension 5 Normal Abduction (C5) 5 Normal External Rotation 4+ Good+ Internal Rotation 5 Normal Therapeutic Exercises Standing Exercises stretch Standing Exercise 1. corner 90/90 B 2. IR behind back w/towel R Name Reps/Minutes 30 sec ea Manual Therapy Treatment Consent Patient gave verbal Yes consent for manual treatment Soft Tissue Mobilization post Comments lats, teres, subscap w/flex cupping Comments post delt w/Hadd c/r pec Body Location R Mobilization Type Rolling,Sustained Pressure Comments w/abd Joint Mobilizations R shoulder Comments post glide c/r w/HAbd, post translation c/r neutral, inf glide c/r into abd, lat gapping c/r Physical Therapy Assessment Goals ROM Short Term Goal (STG Pt will be able get at least 120 deg active shoulder ) flexion and 60 deg active ER of the R shoulder for better ability to complete self-hygiene. 02/14-PROM improved, not cleared for AROM 03/09-ER achieved and was able to wash hair, aROM flex 107 STG Duration 02/24/25 Fdc Goal (LTG) Pt will have shoulder AROM equal to or greater than L shoulder for better function during work and yoga. 03/09-remains limited LTG Duration 06/05/25 work Fdc Goal (LTG) Pt will be able to resume light work activities w/o pain exceeding 3/10 to show improved function and ability to meet job requirements. 03/09- has been able to do light cleaning and dog walks without issue ADVANCE goal to: return to full cleaning and dog walking activities. LTG Duration 06/05/25 quickDASH Impairment 70% Short Term Goal (STG Pt will score at least a 40% on quickDASH to show ) improving functional ability w/o being limited by pain. 02/14-n/t STG Duration achieved to 25 Fdc Goal (LTG) Pt will score at least a 10% or less on quickDASH to show improved functional ability w/o being limited by pain. 03/09- LTG Duration 06/05/25 Assessment Summary Assessment Pt making good progress w/ROM but is very limited w/ flex and abd still w/very tight end feel with concern for adhesive capsulitis, but pt is making good progress w/rotational movements at this time. She would benefit from cont PT for further surgical recovery in order to return to her full job duties, recreational activities and greater ease w/ADLs. Physical Therapy Plan Frequency and Duration Frequency of 2x/Week Treatment Duration of 12 treatment (weeks) Plan of Care Start 03/09/25 Date Plan of Care End 06/07/25 Date Therapeutic Interventions Therapeutic Home Exercise Program,Joint Mobilizations,Manual Interventions Therapy,Neuromuscular Re-education,Patient/Caregiver Education,Self-Care/Home Management,Soft Tissue Mobilization,Taping,Therapeutic Activities,Therapeutic Exercises Modalities Cold Pack/Ice Massage,Electric Stimulation,Hot Packs, Infrared Therapy,Ultrasound Next Visit Focus/Plan Next Note Type Progress Note Next Visit Plan cont to advance ROM (AROM , AAROM), diane r?gela, manual to shoulder Plan of Care Dates Plan of Care Start Date 03/09/25 Plan of Care End Date 06/07/25 Electronically Signed by: Chikis Vu, PT 03/09/25 [id number] If you are in agreement with this Plan of Care, please return a signed and dated copy. I have reviewed this Plan of Care and certify that the skilled therapy services above are required to meet the patient?s needs. Physician Signature Date Printed Name and Credentials Clinical Instructor Signature Printed Name and Credentials
--- NOTE | 2025-03-13 17:58 | PT.OTN ---
Current Diagnoses Complete rotator cuff tear or rupture of right shoulder, not specified as traumatic (03/13/25) Physical Therapy Treatment Note PT OP: Cervical/Upper Extremity Start: 03/01/25 07:18 Freq: Status: Active Protocol: Document 03/13/25 17:02 [facility] (Rec: 03/13/25 17:58 [facility] [id number]) Out-Patient Physical Therapy Visit Information Visit Information Visit Type Treatment Note Visit Start Time 17:03 Visit Stop Time 17:43 Visit Number 13 Number of REMOVABLE PROSTHODONTIST Visits 0 Progress Note Due 04/08/25 OP-PT Subjective Patient Comments Patient Comments Pt reports shoulder doing ok. Stretch behind back still difficult Therapeutic Exercises Supine Exercises bridge Supine Exercise Name arm overhead arch & roll Side right Reps/Minutes 10 Prone Exercises scaption Prone Exercise Name comfortable range Side bilateral Equipment Used over ball Reps/Minutes 12 Comments cues neutral spine Habd Side bilateral Equipment Used over ball Reps/Minutes 12 Comments cues spine alignment and scap reatract Sidelying Exercises open book Side right Reps/Minutes 10 abd Sidelying Exercise rhythmic stabilization at 90 deg abd Name Side right Reps/Minutes 1 min ea Standing Exercises IR/ER Standing Exercise comfortable range Name Side right Equipment Used L2 Reps/Minutes 12 ea Comments cues elbow at side Manual Therapy Treatment Consent Patient gave verbal Yes consent for manual treatment Soft Tissue Mobilization post Comments lats, teres, subscap w/flex cupping Comments post delt, lat, teres, w/flex pec Body Location R Mobilization Type Rolling,Sustained Pressure Comments w/abd Joint Mobilizations cervical Comments transverse C5-6 L w/90 deg abd ER R R shoulder Comments post glide c/r; inf glide w/flex Physical Therapy Assessment Goals ROM Short Term Goal (STG Pt will be able get at least 120 deg active shoulder ) flexion and 60 deg active ER of the R shoulder for better ability to complete self-hygiene. 02/14-PROM improved, not cleared for AROM 03/09-ER achieved and was able to wash hair, aROM flex 107 STG Duration 02/24/25 Bevel Face Stoner And Polisher Goal (LTG) Pt will have shoulder AROM equal to or greater than L shoulder for better function during work and yoga. 03/09-remains limited LTG Duration 06/05/25 work Longterm Goal (LTG) Pt will be able to resume light work activities w/o pain exceeding 3/10 to show improved function and ability to meet job requirements. 03/09- has been able to do light cleaning and dog walks without issue ADVANCE goal to: return to full cleaning and dog walking activities. LTG Duration 06/05/25 quickDASH Impairment 70% Short Term Goal (STG Pt will score at least a 40% on quickDASH to show ) improving functional ability w/o being limited by pain. 02/14-n/t STG Duration achieved to 25 Bevel Face Stoner And Polisher Goal (LTG) Pt will score at least a 10% or less on quickDASH to show improved functional ability w/o being limited by pain. 03/09- LTG Duration 06/05/25 Assessment Summary Assessment Pt had PROM flex to 140 deg after manual today w/ less tightness at end range. required cues w/band exercises for set up and avoiding trunk motion Physical Therapy Plan Frequency and Duration Frequency of 2x/Week Treatment Duration of 12 treatment (weeks) Plan of Care Start 03/09/25 Date Plan of Care End 06/07/25 Date Next Visit Focus/Plan Next Note Type Treatment Note Next Visit Plan cont to advance ROM (AROM , AAROM), gentle r?sistance, manual to shoulder
--- NOTE | 2025-03-15 17:30 | PT.OTN ---
Current Diagnoses Complete rotator cuff tear or rupture of right shoulder, not specified as traumatic (03/15/25) Physical Therapy Treatment Note PT OP: Cervical/Upper Extremity Start: 03/01/25 07:18 Freq: Status: Active Protocol: Document 03/15/25 16:19 [facility] (Rec: 03/15/25 17:27 [facility] [id number]) Out-Patient Physical Therapy Visit Information Visit Information Visit Type Treatment Note Visit Start Time 16:20 Visit Stop Time 17:00 Visit Number 14 Number of PRODUCTION SUPPORT SPECIALIST Visits 0 Progress Note Due 04/08/25 OP-PT Subjective Patient Comments Patient Comments feels like raising overhead a little more Therapeutic Exercises Supine Exercises bridge Supine Exercise Name arm overhead arch & roll Side right Reps/Minutes 10sec x2 Comments cues for elbow push away Prone Exercises scaption Prone Exercise Name comfortable range Side bilateral Reps/Minutes 12 Comments cues neutral spine Habd Side bilateral Reps/Minutes 12 Comments cues spine alignment and scap reatract Sidelying Exercises stretch Sidelying Exercise sleeper Name Side right Reps/Minutes 20 sec x5 open book Side right Reps/Minutes 10 Comments cues for locking knee into place to set up Standing Exercises biceps Side bilateral Equipment Used Lvl 2 band Reps/Minutes 10 Comments cues neutral spine IR/ER Standing Exercise 1. ER w/back on wall 2. IR Name Side right Equipment Used 1. Lvl 12.L2 Reps/Minutes 12 ea Comments cues elbow at side Other Exercises fwd lean Other Exercise Name grab sink and lean back Side bilateral Reps/Minutes 30 sec Manual Therapy Treatment Consent Patient gave verbal Yes consent for manual treatment Soft Tissue Mobilization UT, levator scap Body Location R Mobilization Type Cross-Friction,Rolling,Sustained Pressure Intensity/Depth Moderate Body Position Sitting Comments to deep for levator scap post Comments lats, teres, subscap w/flex biceps Comments circumferential biceps and humerus w/rot pec Body Location R Mobilization Type Rolling,Sustained Pressure Comments w/abd Joint Mobilizations AC Comments APclavicle w/flex c/r R shoulder Comments post glide c/r; inf glide w/flex Physical Therapy Assessment Goals ROM Short Term Goal (STG Pt will be able get at least 120 deg active shoulder ) flexion and 60 deg active ER of the R shoulder for better ability to complete self-hygiene. 02/14-PROM improved, not cleared for AROM 03/09-ER achieved and was able to wash hair, aROM flex 107 STG Duration 02/24/25 Walking Dragline Operator Goal (LTG) Pt will have shoulder AROM equal to or greater than L shoulder for better function during work and yoga. 03/09-remains limited LTG Duration 06/05/25 work Walking Dragline Operator Goal (LTG) Pt will be able to resume light work activities w/o pain exceeding 3/10 to show improved function and ability to meet job requirements. 03/09- has been able to do light cleaning and dog walks without issue ADVANCE goal to: return to full cleaning and dog walking activities. LTG Duration 06/05/25 quickDASH Impairment 70% Short Term Goal (STG Pt will score at least a 40% on quickDASH to show ) improving functional ability w/o being limited by pain. 02/14-n/t STG Duration achieved to 25 Walking Dragline Operator Goal (LTG) Pt will score at least a 10% or less on quickDASH to show improved functional ability w/o being limited by pain. 03/09- LTG Duration 06/05/25 Assessment Summary Assessment Pt had 144 deg flex after manual today. Pt did well with exercises w/less cues today but still struggles to do ER w/o compensation but wall helped. Physical Therapy Plan Frequency and Duration Frequency of 2x/Week Treatment Duration of 12 treatment (weeks) Plan of Care Start 03/09/25 Date Plan of Care End 06/07/25 Date Next Visit Focus/Plan Next Note Type Treatment Note Next Visit Plan cont to advance ROM (AROM , AAROM), gentle r?sistance, manual to shoulder
--- NOTE | 2025-03-22 10:09 | PT-OP ANOTE ---
Pt called and asked for PT to call and PT called and verbally clarified exercises and encouraged to do tomy pose in addition to HEP
--- NOTE | 2025-04-07 09:19 | PT.OTN ---
Current Diagnoses Complete rotator cuff tear or rupture of right shoulder, not specified as traumatic (04/07/25) Physical Therapy Treatment Note PT OP: Cervical/Upper Extremity Start: 03/01/25 07:18 Freq: Status: Active Protocol: Document 04/07/25 07:24 [facility] (Rec: 04/07/25 08:18 [facility] [id number]) Out-Patient Physical Therapy Visit Information Visit Information Visit Type Treatment Note Visit Note Access Code [email or web address] Visit Start Time 07:30 Visit Stop Time 08:00 Visit Number 14 Number of CLOTH CUTTING INSPECTOR Visits 1 Progress Note Due 04/08/25 OP-PT Subjective Patient Comments Patient Comments Adela is 14 weeks 1 day post op rotator cuff repair R shoulder. 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 AROM R shoulder flexion 130 deg with increased trunk extension. [place] assisted R shoulder ER at 30 deg abd 51 deg Therapeutic Exercises Supine Exercises [place] assisted ER Supine Exercise Name at 30 deg abd Reps/Minutes 90 sec Comments tactile cues supine shoulder flexion Supine Exercise Name Reclined HEP Reps/Minutes X 10 Comments Verbal cues Sidelying Exercises ER Sidelying Exercise AROM ER and IR Name Side right Equipment Used towel at side For ER Reps/Minutes 15 Comments VC for full ROM and to avoid wrist ext abd Sidelying Exercise AROM HEP Name Side right Reps/Minutes X1- Comments vc for alignment Standing Exercises wall crawl Standing Exercise abd and flex Name Side right Reps/Minutes 5x each position Comments Vc to step back lift UE off wall at top and lower w/o wall Manual Therapy Treatment Soft Tissue Mobilization UT, levator scap Body Location R UT, levator scap, pec, post cuff, lat Mobilization Type Cross-Friction,Rolling,Sustained Pressure Intensity/Depth Moderate Body Position Sitting Comments and sidelying Joint Mobilizations scapular mobilization R Direction dep and add Grade IV Body Position Sidelying Reps/Duration X 10 each Physical Therapy Assessment Goals ROM Short Term Goal (STG Pt will be able get at least 120 deg active shoulder ) flexion and 60 deg active ER of the R shoulder for better ability to complete self-hygiene. 02/14-PROM improved, not cleared for AROM 03/09-ER achieved and was able to wash hair, aROM flex 107 STG Duration 02/24/25 Snf Goal (LTG) Pt will have shoulder AROM equal to or greater than L shoulder for better function during work and yoga. 03/09-remains limited LTG Duration 06/05/25 work Transaction Coordinator Goal (LTG) Pt will be able to resume light work activities w/o pain exceeding 3/10 to show improved function and ability to meet job requirements. 03/09- has been able to do light cleaning and dog walks without issue ADVANCE goal to: return to full cleaning and dog walking activities. LTG Duration 06/05/25 quickDASH Impairment 70% Short Term Goal (STG Pt will score at least a 40% on quickDASH to show ) improving functional ability w/o being limited by pain. 02/14-n/t STG Duration achieved to 25 Snf Goal (LTG) Pt will score at least a 10% or less on quickDASH to show improved functional ability w/o being limited by pain. 03/09- LTG Duration 06/05/25 Assessment Summary Assessment AROM R shoulder flexion 140 deg end of session. ER R shoulder continues to be limited. Physical Therapy Plan Frequency and Duration Frequency of 2x/Week Treatment Duration of 12 treatment (weeks) Plan of Care Start 03/09/25 Date Plan of Care End 06/07/25 Date Next Visit Focus/Plan Next Note Type Progress Note Next Visit Plan cont to advance ROM (AROM , AAROM), gentle r?sistance, manual to shoulder
--- NOTE | 2025-04-10 09:41 | PT.OPPN ---
Current Diagnoses Complete rotator cuff tear or rupture of right shoulder, not specified as traumatic (04/10/25) Physical Therapy Progress Note PT OP: Cervical/Upper Extremity Start: 03/01/25 07:18 Freq: Status: Active Protocol: Document 04/10/25 07:30 [facility] (Rec: 04/10/25 08:20 [facility] [id number]) Out-Patient Physical Therapy Visit Information Visit Information Visit Type Progress Note Visit Start Time 07:33 Visit Stop Time 08:15 Visit Number 15 Number of POLICE SURGEON Visits 0 Progress Note Due 05/10/25 OP-PT Subjective Patient Comments Patient Comments Pt reports she had a really good massage therapist in [place]. thinks has always has had dec R shoulder ROM. Has been having some twinges in neck. Has been doing exercises Shoulder Goniometric Range of Motion Shoulder Measured in Degrees Right Active Flexion 140 Extension 72 Abduction 142 External Rotation at 66 0 degrees Abduction Internal Rotation T8 Behind Back (text) Comments goes into scaption w/abd Right Passive Flexion 164 Abduction 132 External Rotation at 82 90 degrees Abduction External Rotation at 87 45 degrees Abduction Internal Rotation 72 Comments ER/IR in scaption Shoulder Strength Shoulder Manual Muscle Testing Right Flexion 4- Good- Extension 4 Good Abduction (C5) 3+ Fair+ External Rotation 4- Good- Internal Rotation 4 Good Left Flexion 5 Normal Extension 5 Normal Abduction (C5) 5 Normal External Rotation 4+ Good+ Internal Rotation 5 Normal Therapeutic Exercises Prone Exercises ER Prone Exercise Name 90/90 Side bilateral Equipment Used over ball Reps/Minutes 10 Comments cues scap squeeze and elbow position Ws Side bilateral Equipment Used over tball Reps/Minutes 10 Comments cues hand up w/elbow extension Side bilateral Resistance 3# Equipment Used over ball Reps/Minutes 10 Comments cues scap squeeze scaption Prone Exercise Name comfortable range Side bilateral Equipment Used 1# Reps/Minutes 10 Comments cues push for full range Habd Side bilateral Equipment Used 1# Reps/Minutes 10 Comments cues cervical alignment and scap reatract Standing Exercises serratus punch Standing Exercise wall Name Side bilateral Reps/Minutes 15 Comments max cues scap motion IR/ER Standing Exercise 1. ER B 2. IR Name Side right Equipment Used 1.L2 2. L3 Reps/Minutes 15 ea Comments cues elbow at side wall crawl Standing Exercise abd and flex Name Side right Reps/Minutes 5x each position Comments VC neutral spine then small lift off after 10 sec hold ea Manual Therapy Treatment Consent Patient gave verbal Yes consent for manual treatment Soft Tissue Mobilization pec Body Location R Mobilization Type Rolling,Sustained Pressure Comments w/abd Joint Mobilizations AC Comments AP clavicle w/abd c/r R shoulder Comments R inf c/r GH Physical Therapy Assessment Goals ROM Short Term Goal (STG Pt will be able get at least 120 deg active shoulder ) flexion and 60 deg active ER of the R shoulder for better ability to complete self-hygiene. 02/14-PROM improved, not cleared for AROM 03/09-ER achieved and was able to wash hair, aROM flex 107 STG Duration achieved 04/10 Solid Waste Analyst Goal (LTG) Pt will have shoulder AROM equal to or greater than L shoulder for better function during work and yoga. 03/09-remains limited 04/10-improving LTG Duration 06/05/25 work Solid Waste Analyst Goal (LTG) Pt will be able to resume light work activities w/o pain exceeding 3/10 to show improved function and ability to meet job requirements. 03/09- has been able to do light cleaning and dog walks without issue ADVANCE goal to: return to full cleaning and dog walking activities. 04/10-starting to slowly progress to bigger dogs LTG Duration 06/05/25 quickDASH Impairment 70% Short Term Goal (STG Pt will score at least a 40% on quickDASH to show ) improving functional ability w/o being limited by pain. 02/14-n/t STG Duration achieved to 25 Solid Waste Analyst Goal (LTG) Pt will score at least a 10% or less on quickDASH to show improved functional ability w/o being limited by pain. 03/09-04/10-11.4 LTG Duration 06/05/25 Assessment Summary Assessment Pt making excellent progress w/PT although was not seen for 3 weeks d/t pt away for job. She was compliant w/ HEP during that time though. She does need further strengthening now that she has improved ROM today to more functional range. Pt would benefit from cont PT to work on strength and overhead ability to return to full work activities. Physical Therapy Plan Frequency and Duration Frequency of 2x/Week Treatment Duration of 12 treatment (weeks) Plan of Care Start 03/09/25 Date Plan of Care End 06/07/25 Date Therapeutic Interventions Therapeutic Home Exercise Program,Joint Mobilizations,Manual Interventions Therapy,Neuromuscular Re-education,Patient/Caregiver Education,Self-Care/Home Management,Soft Tissue Mobilization,Taping,Therapeutic Activities,Therapeutic Exercises Modalities Cold Pack/Ice Massage,Electric Stimulation,Hot Packs, Infrared Therapy,Ultrasound Next Visit Focus/Plan Next Note Type Treatment Note Next Visit Plan cont to advance ROM (AROM , AAROM), gentle r?sistance, manual to shoulder
--- NOTE | 2025-04-13 09:14 | PT.OTN ---
Current Diagnoses Complete rotator cuff tear or rupture of right shoulder, not specified as traumatic (04/13/25) Physical Therapy Treatment Note PT OP: Cervical/Upper Extremity Start: 03/01/25 07:18 Freq: Status: Active Protocol: Document 04/13/25 08:19 AB (Rec: 04/13/25 09:13 AB [id number]) Out-Patient Physical Therapy Visit Information Visit Information Visit Type Aquatic Treatment Note Visit Start Time 08:19 Visit Stop Time 09:04 Visit Number 16 Number of VAULT CUSTODIAN Visits 1 Progress Note Due 05/10/25 OP-PT Subjective Patient Comments Patient Comments Patient requesting review of HEP, reports performing on a bed at home, feels different. Patient reports any new exercises provoke the shoulder, rates pain 2-3/10 start of session R shoulder. AROM R shoulder flexion start of session 140 deg. Therapeutic Exercises Prone Exercises ER Prone Exercise Name 90/90 Side bilateral Equipment Used prone on mat towel roll at forehead Reps/Minutes 10 X 2 Comments verbal and tactile cues extension Side bilateral Resistance 3# Equipment Used prone on mat Reps/Minutes 10 X 2 Comments cues scap squeeze scaption Prone Exercise Name comfortable range Side bilateral Reps/Minutes 10 X2 Comments cues push for full range Habd Side bilateral Equipment Used 1# Reps/Minutes 10 X 2 Comments vc for scap reatract Manual Therapy Treatment Consent Patient gave verbal Yes consent for manual treatment Soft Tissue Mobilization UT, levator scap Body Location R UT, levator scap, pec, Mobilization Type Cross-Friction,Rolling,Sustained Pressure Intensity/Depth Moderate Body Position Sitting Comments and sidelying pec Body Location R Mobilization Type Cross-Friction,Rolling Joint Mobilizations scapular mobilization R Direction dep and add Grade IV Body Position Sidelying Reps/Duration X 10 each ribs Direction X 10 X 3 Grade IV Comments AP 1 rib 2 SC Joint R Grade IV Reps/Duration X10 X 3 AC Joint r Grade IV Reps/Duration X 10 X 3 Physical Therapy Assessment Goals ROM Short Term Goal (STG Pt will be able get at least 120 deg active shoulder ) flexion and 60 deg active ER of the R shoulder for better ability to complete self-hygiene. 02/14-PROM improved, not cleared for AROM 03/09-ER achieved and was able to wash hair, aROM flex 107 STG Duration achieved 04/10 Half-Way Goal (LTG) Pt will have shoulder AROM equal to or greater than L shoulder for better function during work and yoga. 03/09-remains limited 04/10-improving LTG Duration 06/05/25 work Half-Way Goal (LTG) Pt will be able to resume light work activities w/o pain exceeding 3/10 to show improved function and ability to meet job requirements. 03/09- has been able to do light cleaning and dog walks without issue ADVANCE goal to: return to full cleaning and dog walking activities. 04/10-starting to slowly progress to bigger dogs LTG Duration 06/05/25 quickDASH Impairment 70% Short Term Goal (STG Pt will score at least a 40% on quickDASH to show ) improving functional ability w/o being limited by pain. 02/14-n/t STG Duration achieved to 25 [employer] Goal (LTG) Pt will score at least a 10% or less on quickDASH to show improved functional ability w/o being limited by pain. 03/09-04/10-11.4 LTG Duration 06/05/25 Assessment Summary Assessment AROM 143 deg R shoulder flexion end of session reports having no pain. Physical Therapy Plan Frequency and Duration Frequency of 2x/Week Treatment Duration of 12 treatment (weeks) Plan of Care Start 03/09/25 Date Plan of Care End 06/07/25 Date Next Visit Focus/Plan Next Note Type Treatment Note Next Visit Plan cont to advance ROM (AROM , AAROM), gentle r?sistance, manual to shoulder
--- NOTE | 2025-04-18 09:32 | PT.OTN ---
Current Diagnoses Complete rotator cuff tear or rupture of right shoulder, not specified as traumatic (04/18/25) Physical Therapy Treatment Note PT OP: Cervical/Upper Extremity Start: 03/01/25 07:18 Freq: Status: Active Protocol: Document 04/18/25 08:18 AB (Rec: 04/18/25 08:33 AB [id number]) Out-Patient Physical Therapy Visit Information Visit Information Visit Type Treatment Note Visit Start Time 08:18 Visit Stop Time 09:02 Visit Number 17 Number of OUTSIDE SALES EXECUTIVE Visits 2 Progress Note Due 05/10/25 OP-PT Subjective Patient Comments Patient Comments Patient reports she saw the surgeon yesterday, everything looks good. Patient reports she would like to have core/back work and MD said to get back to him. Patient reports MD said it is up to PT to decide how much she can lift, but to keep UE's at side when lifting righ now. Patient rates pain R shoulder as minor discomfort and tight 3/10, gestures tu sub deltoid as discomfort. AROM 140 deg R shoulder flesion start of session. Therapeutic Exercises Supine Exercises supine shoulder flexion Supine Exercise Name 1. supine Reps/Minutes X 3 with 10 sec hold Comments Verbal cues Sidelying Exercises abd Sidelying Exercise AROM HEP Name Side right Reps/Minutes X 5 Comments review for HEP Sitting Exercises stretches Sitting Exercise 1. UT 2. LS Name Side right Reps/Minutes 60 sec Comments with AROM rot X 10 vc Standing Exercises L stretch Side bilateral Reps/Minutes 15 sec X 3 Comments verbal cues wall crawl Standing Exercise abd and flex Name Side right Reps/Minutes 3x each position Comments VC neutral spine then small lift off after 10 sec hold ea Other Exercises lat stretch on chair Other Exercise Name HEP Side bilateral Reps/Minutes 60 sec X 1 Comments verbal and visual cues Manual Therapy Treatment Soft Tissue Mobilization UT, levator scap Body Location R UT, levator scap, lat post cuff, sub deltoid ant and post Mobilization Type Cross-Friction,Rolling,Sustained Pressure Intensity/Depth Moderate Body Position Sitting Comments and sidelying Joint Mobilizations scapular mobilization R Direction dep and add Grade IV Body Position Sidelying Reps/Duration X 10 each Physical Therapy Assessment Goals ROM Short Term Goal (STG Pt will be able get at least 120 deg active shoulder ) flexion and 60 deg active ER of the R shoulder for better ability to complete self-hygiene. 02/14-PROM improved, not cleared for AROM 03/09-ER achieved and was able to wash hair, aROM flex 107 STG Duration achieved 04/10 Group Home Goal (LTG) Pt will have shoulder AROM equal to or greater than L shoulder for better function during work and yoga. 03/09-remains limited 04/10-improving LTG Duration 06/05/25 work Group Home Goal (LTG) Pt will be able to resume light work activities w/o pain exceeding 3/10 to show improved function and ability to meet job requirements. 03/09- has been able to do light cleaning and dog walks without issue ADVANCE goal to: return to full cleaning and dog walking activities. 04/10-starting to slowly progress to bigger dogs LTG Duration 06/05/25 quickDASH Impairment 70% Short Term Goal (STG Pt will score at least a 40% on quickDASH to show ) improving functional ability w/o being limited by pain. 02/14-n/t STG Duration achieved to 25 [employer] Draft[employer] Goal (LTG) Pt will score at least a 10% or less on quickDASH to show improved functional ability w/o being limited by pain. 03/09-04/10-11.4 LTG Duration 06/05/25 Assessment Summary Assessment AROM L shoulder flexion post ROM ex X 3, 141 deg and post manual. Inc to 144 post UT, lat stretch and sidelying hip abduction. Physical Therapy Plan Frequency and Duration Frequency of 2x/Week Treatment Duration of 12 treatment (weeks) Plan of Care Start 03/09/25 Date Plan of Care End 06/07/25 Date Next Visit Focus/Plan Next Note Type Treatment Note Next Visit Plan cont to advance ROM (AROM , AAROM), gentle r?sistance, manual to shoulder
--- NOTE | 2025-04-21 12:35 | PT.OTN ---
Current Diagnoses Complete rotator cuff tear or rupture of right shoulder, not specified as traumatic (04/21/25) Physical Therapy Treatment Note PT OP: Cervical/Upper Extremity Start: 03/01/25 07:18 Freq: Status: Active Protocol: Document 04/21/25 08:10 AB (Rec: 04/21/25 09:05 AB [id number]) Out-Patient Physical Therapy Visit Information Visit Information Visit Type Treatment Note Visit Note Access Code [email or web address] Visit Start Time 08:14 Visit Stop Time 09:03 Visit Number 18 Number of REPRODUCTION PRODUCTION MANAGER Visits 4 Progress Note Due 05/10/25 OP-PT Subjective Patient Comments Patient Comments Patient reports feeling stiff shoulder blade area. Adela rates pain a dull 2-3/10 R shoulder. AROM 140 deg start of session. Therapeutic Exercises Supine Exercises Cheerleaders Side bilateral Reps/Minutes X 1 level one latex and latex free ( due to latex free less resist) Comments not michael serratus punch Supine Exercise Name HEP Resistance 1 lb Reps/Minutes X10 X 2 Comments verbal cues X 10 w/o weight X 10 with 1 lb supine shoulder flexion Supine Exercise Name 1. mini band Side bilateral Resistance level one band Reps/Minutes 1. X 10 Comments verbal cues Sidelying Exercises abd Sidelying Exercise AROM Name Side right Reps/Minutes X 5 Comments VC for 10 sec hold end ROM Standing Exercises row Standing Exercise HEP Name Side bilateral Resistance level 2 band Reps/Minutes X 10 Comments vc IR/ER Standing Exercise 1. ER B 2. IR Name Side right Equipment Used L3 Reps/Minutes 15 ea level 3 ER level 3 X 2 IR then X 15 with level 2 Comments VC for slow on ecc, monitor for pain Manual Therapy Treatment Soft Tissue Mobilization UT, levator scap Body Location R UT, levator scap, lat post cuff, sub deltoid ant and post Mobilization Type Cross-Friction,Rolling,Sustained Pressure Intensity/Depth Moderate Body Position Sitting Comments and sidelying Joint Mobilizations scapular mobilization R Direction dep and add Grade IV Body Position Sidelying Reps/Duration X 10 each Physical Therapy Assessment Goals ROM Short Term Goal (STG Pt will be able get at least 120 deg active shoulder ) flexion and 60 deg active ER of the R shoulder for better ability to complete self-hygiene. 02/14-PROM improved, not cleared for AROM 03/09-ER achieved and was able to wash hair, aROM flex 107 STG Duration achieved 04/10 Prosthetic Makeup Designer Goal (LTG) Pt will have shoulder AROM equal to or greater than L shoulder for better function during work and yoga. 03/09-remains limited 04/10-improving LTG Duration 06/05/25 work Senior Care Goal (LTG) Pt will be able to resume light work activities w/o pain exceeding 3/10 to show improved function and ability to meet job requirements. 03/09- has been able to do light cleaning and dog walks without issue ADVANCE goal to: return to full cleaning and dog walking activities. 04/10-starting to slowly progress to bigger dogs LTG Duration 06/05/25 quickDASH Impairment 70% Short Term Goal (STG Pt will score at least a 40% on quickDASH to show ) improving functional ability w/o being limited by pain. 02/14-n/t STG Duration achieved to 25 Senior Care Goal (LTG) Pt will score at least a 10% or less on quickDASH to show improved functional ability w/o being limited by pain. 04/10-11.4 LTG Duration 06/05/25 Assessment Summary Assessment IR with level 3 band limited by pain, changed to level 2 band for HEP. AROM R shoulder flexion 149 deg end of session. Physical Therapy Plan Frequency and Duration Frequency of 2x/Week Treatment Duration of 12 treatment (weeks) Plan of Care Start 03/09/25 Date Plan of Care End 06/07/25 Date Next Visit Focus/Plan Next Note Type Treatment Note Next Visit Plan cont to advance ROM (AROM , AAROM), gentle r?sistance, manual to shoulder
--- NOTE | 2025-04-25 14:50 | PT.OTN ---
Current Diagnoses Complete rotator cuff tear or rupture of right shoulder, not specified as traumatic (04/25/25) Physical Therapy Treatment Note PT OP: Cervical/Upper Extremity Start: 03/01/25 07:18 Freq: Status: Active Protocol: Document 04/25/25 13:49 AB (Rec: 04/25/25 14:50 AB [id number]) Out-Patient Physical Therapy Visit Information Visit Information Visit Type Treatment Note Visit Note Access Code [email or web address] Visit Start Time 13:49 Visit Stop Time 14:36 Visit Number 19 Number of TECHNICAL ILLUSTRATOR Visits 4 Progress Note Due 05/10/25 OP-PT Subjective Patient Comments Patient Comments Patient reports shoulder is sore, was lying on side at chiro and has increased R shoulder. Patient reports prone strengthening is painful even with 1 lb weight. AROM 139 deg R shoulder start of session. Patient c/o feeling a rib is out of place Therapeutic Exercises Supine Exercises serratus punch Supine Exercise Name on foam roller Resistance 1 lb Reps/Minutes X10 X 2 Comments verbal cues X 10 w/o weight X 10 with 1 lb Sidelying Exercises open book Side bilateral Reps/Minutes X 5 each side Comments tactile cues at LE Sitting Exercises stretches Sitting Exercise 1. UTs Name Side right Reps/Minutes 60 sec Comments with AROM rot X 10 vc Standing Exercises scapular depression Resistance level 2 band Reps/Minutes X 15 Comments verbal cues row Standing Exercise Row, high row, lower row HEP for all Name Side bilateral Resistance level 3 band HEP Reps/Minutes X 15 each Comments Verbal cues wall crawl Standing Exercise abd Name Reps/Minutes X 4 Comments verbal and visual cues Manual Therapy Treatment Consent Patient gave verbal Yes consent for manual treatment Soft Tissue Mobilization UT, levator scap Body Location R UT, levator scap, lat post cuff, sub deltoid ant and post Mobilization Type Cross-Friction,Rolling,Sustained Pressure Intensity/Depth Moderate Body Position Sitting Comments and sidelying Joint Mobilizations scapular mobilization R Direction dep and add Grade IV Body Position Sidelying Reps/Duration X 10 each ribs Direction X 10 X 3 Grade IV Comments AP 1 rib 2 Physical Therapy Assessment Goals ROM Short Term Goal (STG Pt will be able get at least 120 deg active shoulder ) flexion and 60 deg active ER of the R shoulder for better ability to complete self-hygiene. 02/14-PROM improved, not cleared for AROM 03/09-ER achieved and was able to wash hair, aROM flex 107 STG Duration achieved 04/10 Rn Complex Care Goal (LTG) Pt will have shoulder AROM equal to or greater than L shoulder for better function during work and yoga. 03/09-remains limited 04/10-improving LTG Duration 06/05/25 work Jail Goal (LTG) Pt will be able to resume light work activities w/o pain exceeding 3/10 to show improved function and ability to meet job requirements. 03/09- has been able to do light cleaning and dog walks without issue ADVANCE goal to: return to full cleaning and dog walking activities. 04/10-starting to slowly progress to bigger dogs LTG Duration 06/05/25 quickDASH Impairment 70% Short Term Goal (STG Pt will score at least a 40% on quickDASH to show ) improving functional ability w/o being limited by pain. 02/14-n/t STG Duration achieved to 25 Jail Goal (LTG) Pt will score at least a 10% or less on quickDASH to show improved functional ability w/o being limited by pain. 03/09-04/10-11.4 LTG Duration 06/05/25 Assessment Summary Assessment AROM R shoulder flexion 152 deg end of session with patient reporting having less pain. Progressed scapular strengthening with bands with instructions to not use bands if able to tolerated prone ITY over new ball. Physical Therapy Plan Frequency and Duration Frequency of 2x/Week Treatment Duration of 12 treatment (weeks) Plan of Care Start 03/09/25 Date Plan of Care End 06/07/25 Date Therapeutic Interventions Therapeutic Home Exercise Program,Joint Mobilizations,Manual Interventions Therapy,Neuromuscular Re-education,Patient/Caregiver Education,Self-Care/Home Management,Soft Tissue Mobilization,Taping,Therapeutic Activities,Therapeutic Exercises Next Visit Focus/Plan Next Note Type Treatment Note Next Visit Plan *If next appt is TECHNICAL ILLUSTRATOR PN due to to 5th visit cont to advance ROM (AROM , AAROM), gentle r?sistance, manual to shoulder Revisit prone ITY Week of May 09 with weight.
--- NOTE | 2025-04-27 09:50 | PT.OPPN ---
Current Diagnoses Complete rotator cuff tear or rupture of right shoulder, not specified as traumatic (04/27/25) Physical Therapy Progress Note PT OP: Cervical/Upper Extremity Start: 03/01/25 07:18 Freq: Status: Active Protocol: Document 04/27/25 09:01 [facility] (Rec: 04/27/25 09:50 [facility] [id number]) Out-Patient Physical Therapy Visit Information Visit Information Visit Type Progress Note Visit Note Access Code [email or web address] Visit Start Time 09:03 Visit Stop Time 09:43 Visit Number 20 Number of PLEATING MACHINE OPERATOR Visits 0 Progress Note Due 05/27/25 OP-PT Subjective Patient Comments Patient Comments Abd and flex she feels dull pain superior shoulder. wts were a little irritating so has been doing bands per PLEATING MACHINE OPERATOR Shoulder Goniometric Range of Motion Shoulder Measured in Degrees Right Active Flexion 150 Extension 78 Abduction 142 External Rotation at 92 90 degrees Abduction External Rotation at 82 0 degrees Abduction Internal Rotation T6 Behind Back (text) Shoulder Strength Shoulder Manual Muscle Testing Right Flexion 4 Good Extension 4+ Good+ Abduction (C5) 4- Good- External Rotation 4 Good Internal Rotation 4+ Good+ Left Flexion 5 Normal Extension 5 Normal Abduction (C5) 5 Normal External Rotation 4+ Good+ Internal Rotation 5 Normal Therapeutic Exercises Standing Exercises push up Standing Exercise vs wall w/serratus punch Name Side bilateral Reps/Minutes 10 Comments cues no scap elevation Other Exercises plank Other Exercise Name hands and feet Side bilateral Reps/Minutes 20 secx2 Comments cues neck and scap press down dog Side bilateral Reps/Minutes 30 sec tomy pose Other Exercise Name 1. fwd 2. lat Side bilateral Reps/Minutes 30 sec ea cat/cow Reps/Minutes 10 Comments cues sit back w/cat position Manual Therapy Treatment Consent Patient gave verbal Yes consent for manual treatment Soft Tissue Mobilization abdomen Comments 1. MFR under R ribcage w/flex 2. OSFM posterior coronary ligament post Comments lats, teres, subscap w/flex pec Body Location R Mobilization Type Rolling Comments w/abd Joint Mobilizations AC Joint r ant clavicle w/flex c/r Grade IV R shoulder Comments GH inf glide w/flex Physical Therapy Assessment Goals ROM Short Term Goal (STG Pt will be able get at least 120 deg active shoulder ) flexion and 60 deg active ER of the R shoulder for better ability to complete self-hygiene. 02/14-PROM improved, not cleared for AROM 03/09-ER achieved and was able to wash hair, aROM flex 107 STG Duration achieved 04/10 Residential Goal (LTG) Pt will have shoulder AROM equal to or greater than L shoulder for better function during work and yoga. 03/09-remains limited 04/10-improving 04/27-mild limitiations w/IR and flex and abd LTG Duration 06/05/25 work Party Plan Demonstrator Goal (LTG) Pt will be able to resume light work activities w/o pain exceeding 3/10 to show improved function and ability to meet job requirements. 03/09- has been able to do light cleaning and dog walks without issue ADVANCE goal to: return to full cleaning and dog walking activities. 04/10-starting to slowly progress to bigger dogs 04/27-some pain still w/vacuuming LTG Duration 06/05/25 quickDASH Impairment 70% Short Term Goal (STG Pt will score at least a 40% on quickDASH to show ) improving functional ability w/o being limited by pain. 02/14-n/t STG Duration achieved to 25 Party Plan Demonstrator Goal (LTG) Pt will score at least a 10% or less on quickDASH to show improved functional ability w/o being limited by pain. 03/09-04/10-11.4 LTG Duration 06/05/25 Assessment Summary Assessment Pt making excellent progress w/PT with improving ROM and strength along w/functional abililities. She would benefit from cont PT to cont to dec pain, and improve function. Abd to about 170 after manual today. Physical Therapy Plan Frequency and Duration Frequency of 2x/Week Treatment Duration of 12 treatment (weeks) Plan of Care Start 03/09/25 Date Plan of Care End 06/07/25 Date Therapeutic Interventions Therapeutic Home Exercise Program,Joint Mobilizations,Manual Interventions Therapy,Neuromuscular Re-education,Patient/Caregiver Education,Self-Care/Home Management,Soft Tissue Mobilization,Taping,Therapeutic Activities,Therapeutic Exercises Next Visit Focus/Plan Next Note Type Treatment Note Next Visit Plan advance yoga activities, try to advance strength, 90/90 ER/IR strength, manual to improve ROM
--- NOTE | 2025-05-01 10:44 | PT.OTN ---
Current Diagnoses Complete rotator cuff tear or rupture of right shoulder, not specified as traumatic (05/01/25) Physical Therapy Treatment Note PT OP: Cervical/Upper Extremity Start: 03/01/25 07:18 Freq: Status: Active Protocol: Document 05/01/25 09:05 [facility] (Rec: 05/01/25 09:50 [facility] [id number]) Out-Patient Physical Therapy Visit Information Visit Information Visit Type Treatment Note Visit Note Access Code [email or web address] Visit Start Time 09:05 Visit Stop Time 09:45 Visit Number 21 Number of LANCE CREWMEMBER Visits 0 Progress Note Due 05/27/25 Therapeutic Exercises Prone Exercises ER Prone Exercise Name 90/90 Side bilateral Resistance 1# Equipment Used prone on ball Reps/Minutes 10 Comments verbal and tactile cues Ws Side bilateral Resistance 1# Equipment Used over tball Reps/Minutes 10 Comments cues hand up w/elbow extension Side bilateral Resistance 3# Equipment Used prone on ball Reps/Minutes 10 Comments cues scap squeeze scaption Prone Exercise Name thumbs up Side bilateral Resistance 1# Equipment Used prone on ball Reps/Minutes 10 Comments cues no scap elevation Habd Prone Exercise Name 1. palms down 2.thumbs up Side bilateral Equipment Used 1# Reps/Minutes 10 ea Comments vc for scap reatract Sidelying Exercises stretch Sidelying Exercise sleeper Name Side right Reps/Minutes 30 sec Standing Exercises press Side bilateral Equipment Used 3# Reps/Minutes 15 Comments cues spine position and no scap elevation push up Standing Exercise 1.vs wall w/serratus punch 2. on 36 in mat table Name Side bilateral Reps/Minutes 1.10 2.5 Comments cues no scap elevation Other Exercises plank Other Exercise Name hands and feet Side bilateral Equipment Used 2nd time w/hands on wts Reps/Minutes 25 secx2 Comments cues neck and scap press Manual Therapy Treatment Consent Patient gave verbal Yes consent for manual treatment Soft Tissue Mobilization cupping Comments R delt, rhomboids, LS w/tomy pose Joint Mobilizations AC Comments post clavicle in tomy pose c/r R shoulder Comments GH post supine c/r; inf glide c/r tomy pose Physical Therapy Assessment Goals ROM Short Term Goal (STG Pt will be able get at least 120 deg active shoulder ) flexion and 60 deg active ER of the R shoulder for better ability to complete self-hygiene. 02/14-PROM improved, not cleared for AROM 03/09-ER achieved and was able to wash hair, aROM flex 107 STG Duration achieved 04/10 Senior Living Goal (LTG) Pt will have shoulder AROM equal to or greater than L shoulder for better function during work and yoga. 03/09-remains limited 04/10-improving 04/27-mild limitiations w/IR and flex and abd LTG Duration 06/05/25 work Senior Living Goal (LTG) Pt will be able to resume light work activities w/o pain exceeding 3/10 to show improved function and ability to meet job requirements. 03/09- has been able to do light cleaning and dog walks without issue ADVANCE goal to: return to full cleaning and dog walking activities. 04/10-starting to slowly progress to bigger dogs 04/27-some pain still w/vacuuming LTG Duration 06/05/25 quickDASH Impairment 70% Short Term Goal (STG Pt will score at least a 40% on quickDASH to show ) improving functional ability w/o being limited by pain. 02/14-n/t STG Duration achieved to 25 Brass Cutter Goal (LTG) Pt will score at least a 10% or less on quickDASH to show improved functional ability w/o being limited by pain. 03/09-04/10-11.4 LTG Duration 06/05/25 Assessment Summary Assessment Pt had improved flex afer manual and did well with exercises w/cues neutral spine and scap motion. Physical Therapy Plan Frequency and Duration Frequency of 2x/Week Treatment Duration of 12 treatment (weeks) Plan of Care Start 03/09/25 Date Plan of Care End 06/07/25 Date Next Visit Focus/Plan Next Note Type Treatment Note Next Visit Plan advance yoga activities, try to advance strength, 90/90 ER/IR strength, manual to improve ROM
--- NOTE | 2025-05-09 10:38 | PT.OTN ---
Current Diagnoses Complete rotator cuff tear or rupture of right shoulder, not specified as traumatic (05/09/25) Physical Therapy Treatment Note PT OP: Cervical/Upper Extremity Start: 03/01/25 07:18 Freq: Status: Active Protocol: Document 05/09/25 09:54 [facility] (Rec: 05/09/25 10:37 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 Therapeutic Exercises Supine Exercises serratus punch Supine Exercise Name on foam roller Resistance 5 lb Reps/Minutes 15 Comments tactile cues for no scap elevation foam roll Supine Exercise Name 1. Habd 2. flex 3. abd Side bilateral Reps/Minutes 12 ea Comments cues back on roll Standing Exercises press Standing Exercise changed to on wall Name Side bilateral Equipment Used 3# Reps/Minutes 15 Comments cues spine position and no scap elevation- no arch of lowback push up Standing Exercise on 36 in mat table Name Side bilateral Reps/Minutes 10 Comments cues no scap elevation Therapeutic Activity Therapeutic Activity mopping/vacuum Reps/Minutes 5 min Comments use of mop to work on hip hinge and wt shift between feet vs twist of back or use of arm carrying Reps/Minutes 5 min Comments lifting and carrying 10lb wt w/RUE w/cues for scap set and back neutral Manual Therapy Treatment Consent Patient gave verbal Yes consent for manual treatment Soft Tissue Mobilization pec Body Location R Mobilization Type Rolling Comments w/abd Joint Mobilizations AC Comments ant clavicle c/r w/overhead R shoulder Comments GH inf w/flex and abd Physical Therapy Assessment Goals ROM Short Term Goal (STG Pt will be able get at least 120 deg active shoulder ) flexion and 60 deg active ER of the R shoulder for better ability to complete self-hygiene. 02/14-PROM improved, not cleared for AROM 03/09-ER achieved and was able to wash hair, aROM flex 107 STG Duration achieved 04/10 [facility] Goal (LTG) Pt will have shoulder AROM equal to or greater than L shoulder for better function during work and yoga. 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 03/09- has been able to do light cleaning and dog walks without issue ADVANCE goal to: return to full cleaning and dog walking activities. 04/10-starting to slowly progress to bigger dogs 04/27-some pain still w/vacuuming LTG Duration 06/05/25 quickDASH Impairment 70% Short Term Goal (STG Pt will score at least a 40% on quickDASH to show ) improving functional ability w/o being limited by pain. 02/14-n/t STG Duration achieved to 25 Security Intelligence Analyst Goal (LTG) Pt will score at least a 10% or less on quickDASH to show improved functional ability w/o being limited by pain. 03/09-04/10-11.4 LTG Duration 06/05/25 Assessment Summary Assessment Pt had improved overhead motion after manual treatment. Cues needed for posture w/exercise and mobility Physical Therapy Plan Frequency and Duration Frequency of 2x/Week Treatment Duration of 12 treatment (weeks) Plan of Care Start 03/09/25 Date Plan of Care End 06/07/25 Date Next Visit Focus/Plan Next Note Type Treatment Note Next Visit Plan advance yoga activities, try to advance strength, 90/90 ER/IR strength, manual to improve ROM
--- NOTE | 2025-05-18 14:52 | PT.OTN ---
Current Diagnoses Complete rotator cuff tear or rupture of right shoulder, not specified as traumatic (05/18/25) Physical Therapy Treatment Note PT OP: Cervical/Upper Extremity Start: 03/01/25 07:18 Freq: Status: Active Protocol: Document 05/18/25 13:46 [facility] (Rec: 05/18/25 14:48 [facility] [id number]) Out-Patient Physical Therapy Visit Information Visit Information Visit Type Treatment Note Visit Note Access Code [email or web address] Visit Start Time 13:46 Visit Stop Time 14:33 Visit Number 23 Number of ORIENTAL RUG REPAIRER Visits 1 Progress Note Due 05/27/25 OP-PT Subjective Patient Comments Patient Comments Patient reports back to [employer] and had a 3 hour house , back was sore post. Patient reports she performs exercises 3X a week. AROM R shoulder flexion 145 deg start of session Therapeutic Exercises Sidelying Exercises open book Side bilateral Reps/Minutes X 5 each side Comments tactile cues at LE abd Sidelying Exercise AROM Name Side right Reps/Minutes X 10 Comments VC for 10 sec hold end ROM Sitting Exercises IR Sitting Exercise seated with UE on table HEP Name Side right Resistance level one band Reps/Minutes X 15 Comments verbal cues ER Sitting Exercise 1. PROM ER 2. AROM Name Reps/Minutes 1. 30 sec X 3 2. X10 with HEP and without 1 lb weight Standing Exercises IR stretch with towel Reps/Minutes 60 sec X 2 R LE Comments verbal cues Other Exercises cat cow on forearms Side bilateral Reps/Minutes X 10 Comments verbal cues tomy pose Other Exercise Name 1. fwd 2. lat Side bilateral Reps/Minutes 5 breaths X2 Manual Therapy Treatment Soft Tissue Mobilization UT, levator scap Body Location R UT, levator scap Mobilization Type Cross-Friction,Rolling,Sustained Pressure Intensity/Depth Moderate Body Position Sitting Comments and sidelying Joint Mobilizations scapular mobilization R Direction dep and add Grade IV Body Position Sidelying Reps/Duration X 10 each Physical Therapy Assessment Goals ROM Short Term Goal (STG Pt will be able get at least 120 deg active shoulder ) flexion and 60 deg active ER of the R shoulder for better ability to complete self-hygiene. 02/14-PROM improved, not cleared for AROM 03/09-ER achieved and was able to wash hair, aROM flex 107 STG Duration achieved 04/10 Angiographer Goal (LTG) Pt will have shoulder AROM equal to or greater than L shoulder for better function during work and yoga. 03/09-remains limited 04/10-improving 04/27-mild limitiations w/IR and flex and abd LTG Duration 06/05/25 work Angiographer Goal (LTG) Pt will be able to resume light work activities w/o pain exceeding 3/10 to show improved function and ability to meet job requirements. 03/09- has been able to do light cleaning and dog walks without issue ADVANCE goal to: return to full cleaning and dog walking activities. 04/10-starting to slowly progress to bigger dogs 04/27-some pain still w/vacuuming LTG Duration 06/05/25 quickDASH Impairment 70% Short Term Goal (STG Pt will score at least a 40% on quickDASH to show ) improving functional ability w/o being limited by pain. 02/14-n/t STG Duration achieved to 25 Detention Goal (LTG) Pt will score at least a 10% or less on quickDASH to show improved functional ability w/o being limited by pain. 04/10-11.4 LTG Duration 06/05/25 Assessment Summary Assessment AROM R shoulder flexion 152 deg end of session. Patient rates 2/10 strained sensation lateral delt. Physical Therapy Plan Frequency and Duration Frequency of 2x/Week Treatment Duration of 12 treatment (weeks) Plan of Care Start 03/09/25 Date Plan of Care End 06/07/25 Date Next Visit Focus/Plan Next Note Type Treatment Note Next Visit Plan advance yoga activities, try to advance strength, assess michael 90/90 ER/IR strength, manual to improve ROM
--- NOTE | 2025-05-24 14:54 | PT.OPPOC ---
Physical, Occupational & Speech Therapy At [facility] Current Diagnoses Complete rotator cuff tear or rupture of right shoulder, not specified as traumatic (05/24/25) Visit Care Team Role Provider Type Doctor MD Tori Primary Care Provider Non-Staff Specialty: Medical Address: Phone: Fax: Email: Taurus Muir DO Attending Provider Non-Staff Family Provider Referring Provider Specialty: Orthopedics Address: [address] [place] [address] [address], [place], [address] opt2 Email: Plan Of Care PT OP: Cervical/Upper Extremity Start: 03/01/25 07:18 Freq: Status: Active Protocol: Document 05/24/25 07:34 [facility] (Rec: 05/24/25 08:19 [facility] [id number]) Out-Patient Physical Therapy Visit Information Visit Information Visit Type Progress Note Visit Start Time 07:32 Visit Stop Time 08:13 Visit Number 24 Number of TRIAL MANAGEMENT ASSOCIATE Visits 0 Progress Note Due 06/23/25 OP-PT Subjective Patient Comments Patient Comments She did a lot of scrubing motion and pec is tight today . has gotten up 1 min on plank. Shoulder Goniometric Range of Motion Shoulder Measured in Degrees Right Active Flexion 151 Extension 76 Abduction 158 External Rotation at 92 90 degrees Abduction Internal Rotation T6 Behind Back (text) Shoulder Strength Shoulder Manual Muscle Testing Right Flexion 4+ Good+ Extension 5 Normal Abduction (C5) 4 Good Adduction 5 Normal External Rotation 4+ Good+ Internal Rotation 4+ Good+ Horizontal Abduction 4+ Good+ Horizontal Adduction 5 Normal Therapeutic Exercises Sidelying Exercises sideplank Sidelying Exercise knees and forearms Name Side bilateral Reps/Minutes 15 sec Comments cues set up and no arch open book Sidelying Exercise arm circles Name Side right Reps/Minutes 8 Comments cues full range Other Exercises rows Other Exercise Name plank rows on knees Side bilateral Equipment Used 5# Reps/Minutes 8 Comments cues scap use push up Other Exercise Name forearm and knees Side bilateral Reps/Minutes 8 Comments on knees plank Other Exercise Name push up plank on knees Side bilateral Reps/Minutes 8 Comments cues neck and back position Therapeutic Activity Therapeutic Activity carrying Name carrying and lifting Reps/Minutes 15 min Comments squat w/scap positioning 10lbs x15 squat cotton picker 5 lb, 10lb, 15 lb, 20 lb crate and carry 15ft then lift onto counter-cues for scap postion and trunk position Physical Therapy Assessment Goals strength Retirement Goal (LTG) Pt will score at least 4+/5 on all R shoulder MMT w/o inc pain to allow her to do heavy work her jobs require LTG Duration 08/15 ROM Short Term Goal (STG Pt will be able get at least 120 deg active shoulder ) flexion and 60 deg active ER of the R shoulder for better ability to complete self-hygiene. 02/14-PROM improved, not cleared for AROM 03/09-ER achieved and was able to wash hair, aROM flex 107 STG Duration achieved 04/10 Retirement Goal (LTG) Pt will have shoulder AROM equal to or greater than L shoulder for better function during work and yoga. 03/09-remains limited 04/10-improving 04/27-mild limitiations w/IR and flex and abd 05/24-mild end range limits LTG Duration 08/15 work Retirement Goal (LTG) Pt will be able to resume light work activities w/o pain exceeding 3/10 to show improved function and ability to meet job requirements. 03/09- has been able to do light cleaning and dog walks without issue ADVANCE goal to: return to full cleaning and dog walking activities. 04/10-starting to slowly progress to bigger dogs 04/27-some pain still w/vacuuming LTG Duration achieved 05/24 quickDASH Impairment 70% Short Term Goal (STG Pt will score at least a 40% on quickDASH to show ) improving functional ability w/o being limited by pain. 02/14-n/t STG Duration achieved to Retirement Goal (LTG) Pt will score at least a 5% or less on quickDASH to show improved functional ability w/o being limited by pain. 03/09-04/10-11.4 05/24-nt LTG Duration 08/05/24 Assessment Summary Assessment Pt making good progress with PT with much improved ROM and strength and return to functional activity. She still has weakness and slight difficulty with overhead ROM and would benefit from cont PT. Physical Therapy Plan Frequency and Duration Frequency of 1-2x/Week Treatment Duration of 12 treatment (weeks) Plan of Care Start 05/24/25 Date Plan of Care End 08/22/25 Date Therapeutic Interventions Therapeutic Home Exercise Program,Joint Mobilizations,Manual Interventions Therapy,Neuromuscular Re-education,Patient/Caregiver Education,Self-Care/Home Management,Soft Tissue Mobilization,Taping,Therapeutic Activities,Therapeutic Exercises Next Visit Focus/Plan Next Note Type Treatment Note Next Visit Plan advance core and WB strength Plan of Care Dates Plan of Care Start Date 05/24/25 Plan of Care End Date 08/22/25 Electronically Signed by: Chikis Vu, PT 05/24/25 3626 If you are in agreement with this Plan of Care, please return a signed and dated copy. I have reviewed this Plan of Care and certify that the skilled therapy services above are required to meet the patient?s needs. Physician Signature Date Printed Name and Credentials Clinical Instructor Signature Printed Name and Credentials
--- NOTE | 2025-05-31 08:34 | PT.OTN ---
Current Diagnoses Complete rotator cuff tear or rupture of right shoulder, not specified as traumatic (05/31/25) Physical Therapy Treatment Note PT OP: Cervical/Upper Extremity Start: 03/01/25 07:18 Freq: Status: Active Protocol: Document 05/31/25 07:32 [facility] (Rec: 05/31/25 08:19 [facility] [id number]) Out-Patient Physical Therapy Visit Information Visit Information Visit Type Treatment Note Visit Start Time 07:33 Visit Stop Time 08:13 Visit Number 25 Number of LIQUOR MERCHANT Visits 0 Progress Note Due 06/23/25 OP-PT Subjective Patient Comments Patient Comments pt reports has difficulty with snow angels on foam roll . Therapeutic Exercises Supine Exercises foam roll Supine Exercise Name snow angels Side bilateral Reps/Minutes 10 Comments cues back down Sidelying Exercises sideplank Sidelying Exercise knees and forearms Name Side bilateral Reps/Minutes 30 sec Comments cues set up and knee position and no arch open book Sidelying Exercise arm circles Name Side bilateral Reps/Minutes 10 Comments cues set up and hand rotation through range Standing Exercises IR/ER Standing Exercise 1.90/90 ER 2. 90/90 IR Name Side right Reps/Minutes 10 ea Comments cues elbow position Other Exercises foam roll rolls Other Exercise Name 1. on knees hands to forearms 2. on hands knees to chest pike Side bilateral Reps/Minutes 8 ea Comments cues set up and back and neck position rows Other Exercise Name plank rows on knees Side bilateral Equipment Used 5# Reps/Minutes 10 Comments cues scap use and knees back further for plank position push up Other Exercise Name cues head position Side bilateral Reps/Minutes 5 Comments on knees plank Other Exercise Name push up plank on knees Side bilateral Reps/Minutes 8 Comments cues neck and back position Manual Therapy Treatment Consent Patient gave verbal Yes consent for manual treatment Joint Mobilizations thoracic Comments transverse T4-6 c/r scap dep AC Comments R post scap R shoulder Comments R GH inf glide c/r abd, post c/r Physical Therapy Assessment Goals strength Longterm Goal (LTG) Pt will score at least 4+/5 on all R shoulder MMT w/o inc pain to allow her to do heavy work her jobs require LTG Duration 1/20 ROM Short Term Goal (STG Pt will be able get at least 120 deg active shoulder ) flexion and 60 deg active ER of the R shoulder for better ability to complete self-hygiene. 02/14-PROM improved, not cleared for AROM 03/09-ER achieved and was able to wash hair, aROM flex 107 STG Duration achieved 04/10 Youth Associate Goal (LTG) Pt will have shoulder AROM equal to or greater than L shoulder for better function during work and yoga. 03/09-remains limited 04/10-improving 04/27-mild limitiations w/IR and flex and abd 05/24-mild end range limits LTG Duration 08/15 quickDASH Impairment 70% Short Term Goal (STG Pt will score at least a 40% on quickDASH to show ) improving functional ability w/o being limited by pain. 02/14-n/t STG Duration achieved to 25 Youth Associate Goal (LTG) Pt will score at least a 5% or less on quickDASH to show improved functional ability w/o being limited by pain. 03/09-04/10-11.4 05/24-nt LTG Duration 08/05/24 Assessment Summary Assessment cues still needed for form and set up on exercises. Advanced core exercises and pt very challenged. Improving overall ROM and pt encouraged to cont more difficult exercises at home. Physical Therapy Plan Frequency and Duration Frequency of 1-2x/Week Treatment Duration of 12 treatment (weeks) Plan of Care Start 05/24/25 Date Plan of Care End 08/22/25 Date Next Visit Focus/Plan Next Note Type Treatment Note Next Visit Plan advance core and WB strength
--- NOTE | 2025-06-06 08:19 | PT.OTN ---
Current Diagnoses Complete rotator cuff tear or rupture of right shoulder, not specified as traumatic (06/06/25) Physical Therapy Treatment Note PT OP: Cervical/Upper Extremity Start: 03/01/25 07:18 Freq: Status: Active Protocol: Document 06/06/25 07:33 [facility] (Rec: 06/06/25 08:19 [facility] [id number]) Out-Patient Physical Therapy Visit Information Visit Information Visit Type Treatment Note Visit Number 26 Number of LAY BROTHER Visits 0 Progress Note Due 06/23/25 Gym Equipment Cable Column (Body Solid) Rows Details cues scap together as pull back Resistance 3 Reps/Time 15 Lat Pull Down Details cues scap down as pull down Resistance 3 Reps/Time 2x10 Therapeutic Exercises Standing Exercises scapular depression Standing Exercise 1. squat 2. RDL 3. deadlift Name Side bilateral Reps/Minutes 10 ea Comments cues back and scap position for safe lifting IR/ER Standing Exercise 1.90/90 ER 2. 90/90 IR Name Side right Equipment Used 1. orange 2. [place] Reps/Minutes 10 ea Comments cues elbow position Other Exercises reverse pull up Other Exercise Name knees bent Side bilateral Reps/Minutes 6 Comments cues core and scap retract hangs Other Exercise Name w/toes on ground w/gentle scap retract Side bilateral Reps/Minutes 10 Manual Therapy Treatment Consent Patient gave verbal Yes consent for manual treatment Soft Tissue Mobilization pec Body Location R Mobilization Type Rolling Comments w/abd Joint Mobilizations AC Comments R post scap R shoulder Comments R GH inf glide and distraction c/r abd Physical Therapy Assessment Goals strength Residential Goal (LTG) Pt will score at least 4+/5 on all R shoulder MMT w/o inc pain to allow her to do heavy work her jobs require LTG Duration 08/15 ROM Short Term Goal (STG Pt will be able get at least 120 deg active shoulder ) flexion and 60 deg active ER of the R shoulder for better ability to complete self-hygiene. 02/14-PROM improved, not cleared for AROM 03/09-ER achieved and was able to wash hair, aROM flex 107 STG Duration achieved 04/10 Residential Goal (LTG) Pt will have shoulder AROM equal to or greater than L shoulder for better function during work and yoga. 03/09-remains limited 04/10-improving 04/27-mild limitiations w/IR and flex and abd 05/24-mild end range limits LTG Duration 08/15 quickDASH Impairment 70% Short Term Goal (STG Pt will score at least a 40% on quickDASH to show ) improving functional ability w/o being limited by pain. 02/14-n/t STG Duration achieved to 25 Residential Goal (LTG) Pt will score at least a 5% or less on quickDASH to show improved functional ability w/o being limited by pain. 03/09-04/10-11.4 05/24- LTG Duration 08/05/24 Assessment Summary Assessment Pt did well with exercises today w/cues. CUes for set up and positioning and posture and safe shoulder position. Physical Therapy Plan Frequency and Duration Frequency of 1-2x/Week Treatment Duration of 12 treatment (weeks) Plan of Care Start 05/24/25 Date Plan of Care End 08/22/25 Date Next Visit Focus/Plan Next Note Type Treatment Note Next Visit Plan advance core and WB strength
--- NOTE | 2025-06-21 14:38 | PT.OPDS ---
Current Diagnoses Complete rotator cuff tear or rupture of right shoulder, not specified as traumatic (06/21/25) Visit Care Team Role Provider Type Doctor MD Tori Primary Care Provider Non-Staff Specialty: Medical Address: Phone: Fax: Email: Taurus Muir DO Attending Provider Non-Staff Family Provider Referring Provider Specialty: Orthopedics Address: [address] [place] [address] [address], [place], [address] opt2 Email: Visit Number Visit Number 27 Discharge Summary PT OP: Cervical/Upper Extremity Start: 03/01/25 07:18 Freq: Status: Active Protocol: Document 06/21/25 13:49 [facility] (Rec: 06/21/25 14:38 [facility] [id number]) Out-Patient Physical Therapy Visit Information Visit Information Visit Type Discharge Summary Visit Start Time 13:51 Visit Stop Time 14:31 Visit Number 27 Number of PULLING MACHINE OPERATOR Visits 0 Progress Note Due 06/23/25 OP-PT Subjective Patient Comments Patient Comments 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 90/90 IR Name Side right Equipment Used 1. orange 2. inaja Reps/Minutes 10 ea Comments cues elbow position and control Manual Therapy Treatment Consent Patient gave verbal Yes consent for manual treatment Soft Tissue Mobilization UE Body Location R circumfrential Mobilization Type Myofascial Release Comments w/flex post Comments lats, teres, subscap w/flex pec Body Location R Mobilization Type Rolling Comments w/abd Joint Mobilizations R shoulder Joint R GH inf c/r Physical Therapy Assessment Goals strength Intelligence Intern Goal (LTG) Pt will score at least 4+/5 on all R shoulder MMT w/o inc pain to allow her to do heavy work her jobs require LTG Duration achieved 06/21 ROM Short Term Goal (STG Pt will be able get at least 120 deg active shoulder ) flexion and 60 deg active ER of the R shoulder for better ability to complete self-hygiene. 02/14-PROM improved, not cleared for AROM 03/09-ER achieved and was able to wash hair, aROM flex 107 STG Duration achieved 04/10 Intelligence Intern Goal (LTG) Pt will have shoulder AROM equal to or greater than L shoulder for better function during work and yoga. 03/09-remains limited 04/10-improving 04/27-mild limitiations w/IR and flex and abd 05/24-mild end range limits LTG Duration achieved full ROM 06/21 w/mild IR limits quickDASH Impairment 70% Short Term Goal (STG Pt will score at least a 40% on quickDASH to show ) improving functional ability w/o being limited by pain. 02/14-n/t STG Duration achieved to 25 Shelter Goal (LTG) Pt will score at least a 5% or less on quickDASH to show improved functional ability w/o being limited by pain. 03/09-04/10-11.4 05/24-nt 06/21-15.9 LTG Duration 08/05/24 Assessment Summary Assessment Pt has made excellent progress w/PT with improved ROM and strength and is indep w/HEP at this time. Pt to cont progress with HEP and yoga at home. She has returned to work without limits w/minor soreness Physical Therapy Plan Discharge Physical Therapy Discharge Reasons Goals Met
--- NOTE | 2025-07-04 18:19 | PT-OP ANOTE ---
Pt called back 06/27 but didn't answer. Called today and pt notes she was having pain with rotation a few days later after session and called 06/27. It got stiff and entire shoulder felt dislocated and has since felt better since that day. Is on anti-inflammatories per MD and will be further checked out this week. Was clicking a lot. feeling better now and will get a new referral if not doing well still in 1 month.
== END 2025-06-26 09:33 | disposition home or self-care (01) ==
LOC: PHYS 13:45
PROVIDERS: Family Provider Orthopaedic Surgery; Referring Provider Orthopaedic Surgery; Visit Provider Orthopaedic Surgery
DX: M75.121 Complete rotator cuff tear or rupture of right shoulder, not specified as traumatic (principal)
CPT/HCPCS: 97110; 97140; 97162; 97530